=== PATIENT | female | born 1950 | race Caucasian/White ===

== ENCOUNTER 2022-11-06 13:01 | Emergency (ER) | payer OTHER ==
--- OUTSIDE RECORDS SUMMARY | 2022-11-06 13:07 | XMS REPORT | Continuity of Care Document ---
:1950 Author Organization [facility] t Address [address] [place] [address] Care Team Providers Name Role Phone Ariela Ceron Attending Clinician Pako Attending Clinician Unavailable Raghu Kimble Attending Clinician Unavailable Pako Admitting Clinician Unavailable Raghu Kimble Admitting Clinician Unavailable Payers Payer Name Policy Type Policy Number Effective Date Expiration Date S coretta AETLEN (MEDICARE [id number] 2022 REPLACEMENT PPO) 00:00:00 Problems Condition Condition Condition Status Onset Resolution Last Treating Co mments Source Name Details Category Date Date Treatment Clinician Date Acquired Acquired Problem Active Azale a trigger Trigger 4-20 Orthope finger of Finger of 00:00: dic right Right 00 Sports middle Middle Medicin finger Finger e STRESS STRESS Diagnosis Active 2019-05-23 Me moria INCONTINEN INCONTINEN 05-18 13:17:00 l CE CE Active 00:00: Apolinar n 05/18/[address] [place] [address] Current Current Problem Active Maria Dolores tear of Tear of 4-30 Orthope medial Medial 00:00: dic cartilage Cartilage 00 Spor ts AND/OR AND/OR Medicin meniscus Meniscus e of knee of Knee Chronic Chronic Problem Resolve 2021-01-01 M emoria urinary urinary d 21:30:13 l tract tract Ajit infection infection (disorder) (disorder) Resolved Problem 01/01/2021 [facility] Hyperchole Hyperchol Problem Resolve 2021-01-01 Memoria sterolemia esterolemi d 21:30:13 l (disorder) a Apolinar n (disorder) Resolved Problem 01/01/2021 [facility] Blood in Blood in Problem Active 2022-10-21 Memoria urine urine 22:06:17 l (finding) (finding) Herm joaquin Active Problem 10/21/2022 [facility] Constipati Problem Active 2022-10-21 M emoria on Constipati 22:06:17 l (disorder) on Apolinar n (disorder) Active Problem 10/21/2022 [facility] Time Share Mixed Mixed Problem Active 2022-10-21 Memor ia incontinen incontinen 22:06:17 l ce ce Ajit (finding) (finding) Active Problem 10/21/2022 [facility] Morbid Morbid Problem Active 2022-10-21 [facility] obesity obesity 22:06:17 l (disorder) (disorder) He rmann Active Problem 10/21/2022 [facility] Recurrent Recurrent Problem Active 2022-10-21 Memoria urinary urinary 22:06:17 l tract tract [place] infection infection (disorder) (disorder) Active Problem 10/21/2022 [facility] Vaginal Vaginal Problem Active 2022-10-21 Me moria dryness dryness 22:06:17 l (disorder) (disorder) He rmann Active Problem 10/21/2022 [facility] Time Share Allergies, Adverse Reactions, Alerts Allergy Allergy Status Severity Reaction(s) Onset Inactive Treating Comm ents Source Name Type Date Date Clinician prometha DA Active [facility] zine HCl 08-28 00:00: [facility] ibuprofe DA Active [facility] n 08-28 00:00: [facility]ope 00 [facility] prometha DA Active [facility] zine HCl - 00:00: Orthope 00 [facility] ibuprofe DA Active [facility] n 09-12 00:00: [facility]ope 00 [facility] Phenerga Allergy Active Maria Dolores n to 09-02 Orthope substan 00:00: dic e 00 Sports Medicin e Motrin Motrin Active Abby Fong Phenerga Phenerga Active Abraham huang n n l Ajit Social History Smoking Status Start Date Stop Date Source Tobacco smoking status [facility] Medications Ordered Filled Start Stop Current Ordering Indication Dosage Frequency Signature Comments Components Source Medication Medication Date Date Medication? Clinician (SIG) Name Name cephalexin 2021-05 Yes 20 ea, Memor ia 500 mg oral 2-12 TAKE 1 l capsule 17:42: CAPSULE BY Herm joaquin 00 MOUTH TWICE A DAY FOR 10 DAYS, 0 Refill(s) betamethaso 2021-05 Yes 30 gm, [place] [facility] ne-clotrima 2-12 TOPICAL l zole 17:42: APPLY TO [place] topical 00 AFFECTED 0.05%-1% AREA TWICE cream DAILY NEEDED, 0 Refill(s) erythromyci 2021-05 Yes 3 gm, Memor ia n 2-12 APPLY AT l ophthalmic 17:42: BEDTIME Herm joaquin 0.5% 00 FOR 1 WEEK ointment IN BOTH EYES, 0 Refill(s) cephalexin 2021-05 Yes 20 ea, Memor ia 500 mg oral 2-12 TAKE 1 l capsule 17:42: CAPSULE BY Herm joaquin 00 MOUTH TWICE A DAY FOR 10 DAYS, 0 Refill(s) betamethaso 2021-05 Yes 30 gm, [place] [facility] ne-clotrima 2-12 TOPICAL l zole 17:42: APPLY TO Ajit topical 00 AFFECTED 0.05%-1% AREA TWICE cream DAILY NEEDED, 0 Refill(s) erythromyci 2021-05 Yes 3 gm, Memor ia n 2-12 APPLY AT l ophthalmic 17:42: BEDTIME Herm joaquin 0.5% 00 FOR 1 WEEK ointment IN BOTH EYES, 0 Refill(s) cephalexin 2021-05 Yes 20 ea, Memor ia 500 mg oral 2-12 TAKE 1 l capsule 17:42: CAPSULE BY Herm joaquin 00 MOUTH TWICE A DAY FOR 10 DAYS, 0 Refill(s) betamethaso 2021-05 Yes 30 gm, [place] [facility] ne-clotrima 2-12 TOPICAL l zole 17:42: APPLY TO [place] topical 00 AFFECTED 0.05%-1% AREA TWICE cream DAILY NEEDED, 0 Refill(s) erythromyci 2021-05 Yes 3 gm, Memor ia n 2-12 APPLY AT l ophthalmic 17:42: BEDTIME Herm joaquin 0.5% 00 FOR 1 WEEK ointment IN BOTH EYES, 0 Refill(s) cephalexin 2021-05 Yes 20 ea, Memor ia 500 mg oral 2-12 TAKE 1 l capsule 17:42: CAPSULE BY Herm joaquin 00 MOUTH TWICE A DAY FOR 10 DAYS, 0 Refill(s) betamethaso 2021-05 Yes 30 gm, [place] ne-clotrima 2-12 TOPICAL l zole 17:42: APPLY TO Ajit topical 00 AFFECTED 0.05%-1% AREA TWICE cream DAILY NEEDED, 0 Refill(s) erythromyci 2021-05 Yes 3 gm, Memor ia n 2-12 APPLY AT l ophthalmic 17:42: BEDTIME Herm joaquin 0.5% 00 FOR 1 WEEK ointment IN BOTH EYES, 0 Refill(s) cephalexin 2021-05 Yes 20 ea, Memor ia 500 mg oral 2-12 TAKE 1 l capsule 17:42: CAPSULE BY Herm joaquin 00 MOUTH TWICE A DAY FOR 10 DAYS, 0 Refill(s) betamethaso 2021-05 Yes 30 gm, [place] [facility] ne-clotrima 2-12 TOPICAL l zole 17:42: APPLY TO [place] topical 00 AFFECTED 0.05%-1% AREA TWICE cream DAILY NEEDED, 0 Refill(s) erythromyci 2021-05 Yes 3 gm, Memor ia n 2-12 APPLY AT l ophthalmic 17:42: BEDTIME Herm joaquin 0.5% 00 FOR 1 WEEK ointment IN BOTH EYES, 0 Refill(s) cephalexin 2021-05 Yes 20 ea, Memor ia 500 mg oral 2-12 TAKE 1 l capsule 17:42: CAPSULE BY Herm joaquin 00 MOUTH TWICE A DAY FOR 10 DAYS, 0 Refill(s) betamethaso 2021-05 Yes 30 gm, [place] ne-clotrima 2-12 TOPICAL l zole 17:42: APPLY TO Ajit topical 00 AFFECTED 0.05%-1% AREA TWICE cream DAILY NEEDED, 0 Refill(s) erythromyci 2021-05 Yes 3 gm, Memor ia n 2-12 APPLY AT l ophthalmic 17:42: BEDTIME Herm joaquin 0.5% 00 FOR 1 WEEK ointment IN BOTH EYES, 0 Refill(s) cephalexin 2021-05 Yes 20 ea, Memor ia 500 mg oral 2-12 TAKE 1 l capsule 17:42: CAPSULE BY Herm joaquin 00 MOUTH TWICE A DAY FOR 10 DAYS, 0 Refill(s) betamethaso 2021-05 Yes 30 gm, [place] ne-clotrima 2-12 TOPICAL l zole 17:42: APPLY TO [place] topical 00 AFFECTED 0.05%-1% AREA TWICE cream DAILY NEEDED, 0 Refill(s) erythromyci 2021-05 Yes 3 gm, Memor ia n 2-12 APPLY AT l ophthalmic 17:42: BEDTIME Herm joaquin 0.5% 00 FOR 1 WEEK ointment IN BOTH EYES, 0 Refill(s) Estrace 2021-05 Yes See Memoria Vaginal 1-09 Instructio l Cream 0.1 19:21: ns, apply Her hernandez mg/g 00 pea size amount to urethra and vagina nightly for 2 weeks and then 3xweek. 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 . Estrace 2021-05 Yes See Memoria Vaginal 1-09 Instructio l Cream 0.1 19:21: ns, apply Her hernandez mg/g 00 pea size amount to urethra and vagina nightly for 2 weeks and then 3xweek. 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 . Estrace 2021-05 Yes See Memoria Vaginal 1-09 Instructio l Cream 0.1 19:21: ns, apply Her hernandez mg/g 00 pea size amount to urethra and vagina nightly for 2 weeks and then 3xweek. 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 . Estrace 2021-05 Yes See Memoria Vaginal 1- Instructio l Cream 0.1 19:21: ns, apply Her hernandez mg/g 00 pea size amount to urethra and vagina nightly for 2 weeks and then 3xweek. May dispose of applicator ., # 43 gm, 3 Refill(s), [facility]acy: [id number], 154.94, cm, 03/18/22 12:23: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, Height, 83.75, kg, 03/18/22 12:23:00.. . Estrace 2021-05 Yes See Memoria Vaginal - Instructio l Cream 0.1 19:21: ns, apply Her hernandez mg/g 00 pea size amount to urethra and vagina nightly for 2 weeks and then 3xweek. May dispose of applicator ., # 43 gm, 3 Refill(s), Pharmacy: [id number], 154.94, cm, 03/18/22 12:23: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, Height, 83.75, kg, 03/18/22 12:23:00.. . Estrace 2021-05 Yes See Memoria Vaginal - Instructio l Cream 0.1 19:21: ns, apply Her hernandez mg/g 00 pea size amount to urethra and vagina nightly for 2 weeks and then 3xweek. May dispose of applicator ., # 43 gm, 3 Refill(s), Pharmacy: [id number], 154.94, cm, 03/18/22 12:23: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, Height, 83.75, kg, 03/18/22 12:23:00.. . Estrace 2021-05 Yes See Memoria Vaginal 1-09 Instructio l Cream 0.1 19:21: ns, apply Her hernandez mg/g 00 pea size amount to urethra and vagina nightly for 2 weeks and then 3xweek. May dispose of applicator ., # 43 gm, 3 Refill(s), Pharmacy: [id number], 154.94, cm, 03/18/22 12:23: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, Height, 83.75, kg, 03/18/22 12:23:00.. . Premarin 2020-0 Yes 1 appl, Memori a Vaginal 8-26 VAG, l 0.625 mg/g 13:52: Bedtime, Her hernandez cream with 00 apply pea applicator sized amount to urethral 3 times a week., # 42 gm, 3 Refill(s), Pharmacy: [id number], 154.94, cm, 09/19/20 13:13:00 CDT, Height, 97.273, kg, 09/19/20 13:13:00 CDT, Weight Premarin 2020-0 Yes 1 appl, Memori a Vaginal 8-26 VAG, l 0.625 mg/g 13:52: Bedtime, Her hernandez cream with 00 apply pea applicator sized amount to urethral 3 times a week., # 42 gm, 3 Refill(s), Pharmacy: [email or web address] #[id number], 154.94, cm, 09/19/20 13:13:00 CDT, Height, 97.273, kg, 09/19/20 13:13:00 CDT, Weight Premarin 0 Yes 1 appl, Memori a Vaginal 8-26 VAG, l 0.625 mg/g 13:52: Bedtime, Her hernandez cream with 00 apply pea applicator sized amount to urethral 3 times a week., # 42 gm, 3 Refill(s), Pharmacy: [id number], 154.94, cm, 09/19/20 13:13:00 CDT, Height, 97.273, kg, 09/19/20 13:13:00 CDT, Weight Premarin 0 Yes 1 appl, Memori a Vaginal 8-26 VAG, l 0.625 mg/g 13:52: Bedtime, Her hernandez cream with 00 apply pea applicator sized amount to urethral 3 times a week., # 42 gm, 3 Refill(s), Pharmacy: [id number], 154.94, cm, 09/19/20 13:13:00 CDT, Height, 97.273, kg, 09/19/20 13:13:00 CDT, Weight Premarin 2020-0 Yes 1 appl, Memori a Vaginal 8-26 VAG, l 0.625 mg/g 13:52: Bedtime, Her hernandez cream with 00 apply pea applicator sized amount to urethral 3 times a week., # 42 gm, 3 Refill(s), Pharmacy: [id number], 154.94, cm, 09/19/20 13:13:00 CDT, Height, 97.273, kg, 09/19/20 13:13:00 CDT, Weight Premarin 1-0 Yes 1 appl, Memori a Vaginal 8-26 VAG, l 0.625 mg/g 13:52: Bedtime, Her hernandez cream with 00 apply pea applicator sized amount to urethral 3 times a week., # 42 gm, 3 Refill(s), Pharmacy: [id number], 154.94, cm, 09/19/20 13:13:00 CDT, Height, 97.273, kg, 09/19/20 13:13:00 CDT, Weight Premarin 1-0 Yes 1 appl, Memori a Vaginal 8-26 VAG, l 0.625 mg/g 13:52: Bedtime, Her hernandez cream with 00 apply pea applicator sized amount to urethral 3 times a week., # 42 gm, 3 Refill(s), Pharmacy: [id number], 154.94, cm, 09/19/20 13:13:00 CDT, Height, 97.273, kg, 09/19/20 13:13:00 CDT, Weight Vantin 200 2021-0 Yes 200 mg = 1 M emoria mg oral 5-13 tab, PO, l tablet 19:11: Q12H, X 14 Rayne nn 00 day, # 28 tab, 0 Refill(s), Pharmacy: [id number], 154.94, cm, 09/19/20 13:13:00 CDT, Height, 97.273, kg, 09/19/20 13:13:00 CDT, Weight Vantin 200 2021-0 Yes 200 mg = 1 M emoria mg oral 5-13 tab, PO, l tablet 19:11: Q12H, X 14 Rayne nn 00 day, # 28 tab, 0 Refill(s), Pharmacy: [id number], 154.94, cm, 09/19/20 13:13:00 CDT, Height, 97.273, kg, 09/19/20 13:13:00 CDT, Weight Vantin 200 2021-0 Yes 200 mg = 1 M emoria mg oral 5-13 tab, PO, l tablet 19:11: Q12H, X 14 Rayne nn 00 day, # 28 tab, 0 Refill(s), Pharmacy: [id number], 154.94, cm, 09/19/20 13:13:00 CDT, Height, 97.273, kg, 09/19/20 13:13:00 CDT, Weight Vantin 200 2021-0 Yes 200 mg = 1 M emoria mg oral 5-13 tab, PO, l tablet 19:11: Q12H, X 14 Rayne nn day, # 28 tab, 0 Refill(s), Pharmacy: [id number], 154.94, cm, 09/19/20 13:13:00 CDT, Height, 97.273, kg, 09/19/20 13:13:00 CDT, Weight Vantin 200 2021-0 Yes 200 mg = 1 M emoria mg oral 5-13 tab, PO, l tablet 19:11: Q12H, X 14 Rayne nn 00 day, # 28 tab, 0 Refill(s), Pharmacy: [id number], 154.94, cm, 09/19/20 13:13:00 CDT, Height, 97.273, kg, 09/19/20 13:13:00 CDT, Weight Vantin 200 2021-0 Yes 200 mg = 1 M emoria mg oral 5-13 tab, PO, l tablet 19:11: Q12H, X 14 Rayne nn 00 day, # 28 tab, 0 Refill(s), Pharmacy: [id number], 154.94, cm, 09/19/20 13:13:00 CDT, Height, 97.273, kg, 09/19/20 13:13:00 CDT, Weight Vantin 200 2021-0 Yes 200 mg = 1 M emoria mg oral 5-13 tab, PO, l tablet 19:11: Q12H, X 14 Rayne nn 00 day, # 28 tab, 0 Refill(s), Pharmacy: [id number], 154.94, cm, 09/19/20 13:13:00 CDT, Height, 97.273, kg, 09/19/20 13:13:00 CDT, Weight VESIcare 5 2020-0 Yes 5 mg = 1 Mem oria mg oral 1-11 tab, PO, l tablet 15:46: Daily, # [place] 00 90 tab, 3 Refill(s), Pharmacy: [id number], 154.94, cm, 04/10/20 8:55: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, Height, 97.273, kg, 04/10/20 8:55: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, Weight VESIcare 5 2020-0 Yes 5 mg = 1 Mem oria mg oral 1-11 tab, PO, l tablet 15:46: Daily, # Ajit 00 90 tab, 3 Refill(s), Pharmacy: [id number], 154.94, cm, 04/10/20 8:55: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, Height, 97.273, kg, 04/10/20 8:55: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, Weight VESIcare 5 2020-0 Yes 5 mg = 1 Mem oria mg oral 1-11 tab, PO, l tablet 15:46: Daily, # Ajit 00 90 tab, 3 Refill(s), Pharmacy: [id number], 154.94, cm, 04/10/20 8:55: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, Height, 97.273, kg, 04/10/20 8:55: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, Weight VESIcare 5 2020-0 Yes 5 mg = 1 Mem oria mg oral 1-11 tab, PO, l tablet 15:46: Daily, # [place] 00 90 tab, 3 Refill(s), Pharmacy: [id number], 154.94, cm, 04/10/20 8:55: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, Height, 97.273, kg, 04/10/20 8:55: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, Weight VESIcare 5 2020-0 Yes 5 mg = 1 Mem oria mg oral 1-11 tab, PO, l tablet 15:46: Daily, # Ajit 00 90 tab, 3 Refill(s), Pharmacy: [id number], 154.94, cm, 04/10/20 8:55: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, Height, 97.273, kg, 04/10/20 8:55: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, Weight VESIcare 5 2020-0 Yes 5 mg = 1 Mem oria mg oral 1-11 tab, PO, l tablet 15:46: Daily, # Ajit 00 90 tab, 3 Refill(s), Pharmacy: [facility] #[id number], 154.94, cm, 04/10/20 8:55: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, Height, 97.273, kg, 04/10/20 8:55: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, Weight VESIcare 5 2020-0 Yes 5 mg = 1 Mem oria mg oral 1-11 tab, PO, l tablet 15:46: Daily, # [place] 00 90 tab, 3 Refill(s), Pharmacy: [id number], 154.94, cm, 04/10/20 8:55: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, Height, 97.273, kg, 04/10/20 8:55: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, Weight Ciprofloxac 2019-05 Yes 500 mg = 1 Memoria in 500 MG 2-02 tab, PO, l Oral Tablet 15:38: Q12H, for H ermann [Cipro] 00 UTI, X 3 day, # 6 tab, 0 Refill(s), Pharmacy: [id number], 154.94, cm, 04/10/20 8:55: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, Height, 97.273, kg, 04/10/20 8:55: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, Weight Ciprofloxac 2019-05 Yes 500 mg = 1 Memoria in 500 MG 2-02 tab, PO, l Oral Tablet 15:38: Q12H, for H ermann [Cipro] 00 UTI, X 3 day, # 6 tab, 0 Refill(s), Pharmacy: [id number], 154.94, cm, 04/10/20 8:55: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, Height, 97.273, kg, 04/10/20 8:55: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, Weight Ciprofloxac 2019-05 Yes 500 mg = 1 Memoria in 500 MG 2-02 tab, PO, l Oral Tablet 15:38: Q12H, for H ermann [Cipro] 00 UTI, X 3 day, # 6 tab, 0 Refill(s), Pharmacy: [id number], 154.94, cm, 04/10/20 8:55: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, Height, 97.273, kg, 04/10/20 8:55: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, Weight Ciprofloxac 2019-05 Yes 500 mg = 1 Memoria in 500 MG 2-02 tab, PO, l Oral Tablet 15:38: Q12H, for H ermann [Cipro] 00 UTI, X 3 day, # 6 tab, 0 Refill(s), Pharmacy: [id number], 154.94, cm, 04/10/20 8:55: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, Height, 97.273, kg, 04/10/20 8:55: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, Weight Ciprofloxac 2019-05 Yes 500 mg = 1 Memoria in 500 MG 2-02 tab, PO, l Oral Tablet 15:38: Q12H, for H ermann [Cipro] 00 UTI, X 3 day, # 6 tab, 0 Refill(s), Pharmacy: [id number], 154.94, cm, 04/10/20 8:55: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, Height, 97.273, kg, 04/10/20 8:55: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, Weight Ciprofloxac 2019-05 Yes 500 mg = 1 Memoria in 500 MG 2-02 tab, PO, l Oral Tablet 15:38: Q12H, for H ermann [Cipro] 00 UTI, X 3 day, # 6 tab, 0 Refill(s), Pharmacy: [id number], 154.94, cm, 04/10/20 8:55: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, Height, 97.273, kg, 04/10/20 8:55: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, Weight Ciprofloxac 2019-05 Yes 500 mg = 1 Memoria in 500 MG 2-02 tab, PO, l Oral Tablet 15:38: Q12H, for H ermann [Cipro] 00 UTI, X 3 day, # 6 tab, 0 Refill(s), Pharmacy: [id number], 154.94, cm, 04/10/20 8:55: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, Height, 97.273, kg, 04/10/20 8:55: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, Weight solifenacin 2019-05 Yes 5 mg = 1 Me moria succinate 5 2-02 tab, PO, l MG Oral 15:37: Daily, # Apolinar n Tablet 00 90 tab, 3 [VESICARE] Refill(s), Pharmacy: [id number], 154.94, cm, 04/10/20 8:55: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, Height, 97.273, kg, 04/10/20 8:55: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, Weight Estrogens, 2019-05 Yes 1 appl, [place] er[place] Conjugated 2-02 VAG, l (RESIDENTIAL) 0.625 15:37: Bedtime, He rmann MG/ML 00 apply pea Vaginal sized Cream amount to [Premarin] urethral 3 times a week., # 42 gm, 3 Refill(s), Pharmacy: [id number], 154.94, cm, 04/10/20 8:55: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, Height, 97.273, kg, 04/10/20 8:55: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, Weight solifenacin 2019-05 Yes 5 mg = 1 Me moria succinate 5 2-02 tab, PO, l MG Oral 15:37: Daily, # Apolinar n Tablet 00 90 tab, 3 [VESICARE] Refill(s), Pharmacy: [id number], 154.94, cm, 04/10/20 8:55: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, Height, 97.273, kg, 04/10/20 8:55: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, Weight Estrogens, 2019-05 Yes 1 appl, [place] eris Conjugated 2-02 VAG, l (RESIDENTIAL) 0.625 15:37: Bedtime, He rmann MG/ML 00 apply pea Vaginal sized Cream amount to [Premarin] urethral 3 times a week., # 42 gm, 3 Refill(s), Pharmacy: [id number], 154.94, cm, 04/10/20 8:55: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, Height, 97.273, kg, 04/10/20 8:55: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, Weight solifenacin 2019-05 Yes 5 mg = 1 Me moria succinate 5 2-02 tab, PO, l MG Oral 15:37: Daily, # Apolinar n Tablet 00 90 tab, 3 [VESICARE] Refill(s), Pharmacy: [id number], 154.94, cm, 04/10/20 8:55: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, Height, 97.273, kg, 04/10/20 8:55: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, Weight Estrogens, 2019-05 Yes 1 appl, [place] er[place] Conjugated 2-02 VAG, l (RESIDENTIAL) 0.625 15:37: Bedtime, He rmann MG/ML 00 apply pea Vaginal sized Cream amount to [Premarin] urethral 3 times a week., # 42 gm, 3 Refill(s), Pharmacy: [id number], 154.94, cm, 04/10/20 8:55: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, Height, 97.273, kg, 04/10/20 8:55: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, Weight solifenacin 2019-05 Yes 5 mg = 1 Me moria succinate 5 2-02 tab, PO, l MG Oral 15:37: Daily, # Apolinar n Tablet 00 90 tab, 3 [VESICARE] Refill(s), Pharmacy: [id number], 154.94, cm, 04/10/20 8:55: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, Height, 97.273, kg, 04/10/20 8:55: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, Weight Estrogens, 2019-05 Yes 1 appl, [place] eris Conjugated 2-02 VAG, l (RESIDENTIAL) 0.625 15:37: Bedtime, He rmann MG/ML 00 apply pea Vaginal sized Cream amount to [Premarin] urethral 3 times a week., # 42 gm, 3 Refill(s), Pharmacy: [id number], 154.94, cm, 04/10/20 8:55: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, Height, 97.273, kg, 04/10/20 8:55: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, Weight solifenacin 2019-05 Yes 5 mg = 1 Me moria succinate 5 2-02 tab, PO, l MG Oral 15:37: Daily, # Apolinar n Tablet 00 90 tab, 3 [VESICARE] Refill(s), Pharmacy: [id number], 154.94, cm, 04/10/20 8:55: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, Height, 97.273, kg, 04/10/20 8:55: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, Weight Estrogens, 2019-05 Yes 1 appl, [place] eris Conjugated 2-02 VAG, l (RESIDENTIAL) 0.625 15:37: Bedtime, He rmann MG/ML 00 apply pea Vaginal sized Cream amount to [Premarin] urethral 3 times a week., # 42 gm, 3 Refill(s), Pharmacy: [id number], 154.94, cm, 04/10/20 8:55: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, Height, 97.273, kg, 04/10/20 8:55: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, Weight solifenacin 2019-05 Yes 5 mg = 1 Me moria succinate 5 2-02 tab, PO, l MG Oral 15:37: Daily, # Apolinar n Tablet 00 90 tab, 3 [VESICARE] Refill(s), Pharmacy: [id number], 154.94, cm, 04/10/20 8:55: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, Height, 97.273, kg, 04/10/20 8:55: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, Weight Estrogens, 2019-05 Yes 1 appl, [place] eris Conjugated 2-02 VAG, l (RESIDENTIAL) 0.625 15:37: Bedtime, He rmann MG/ML 00 apply pea Vaginal sized Cream amount to [Premarin] urethral 3 times a week., # 42 gm, 3 Refill(s), Pharmacy: [id number], 154.94, cm, 04/10/20 8:55: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, Height, 97.273, kg, 04/10/20 8:55: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, Weight solifenacin 2019-05 Yes 5 mg = 1 Me moria succinate 5 2-02 tab, PO, l MG Oral 15:37: Daily, # Apolinar n Tablet 00 90 tab, 3 [VESICARE] Refill(s), Pharmacy: [id number], 154.94, cm, 04/10/20 8:55: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, Height, 97.273, kg, 04/10/20 8:55: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, Weight Estrogens, 2019-05 Yes 1 appl, [place] Conjugated 2-02 VAG, l (RESIDENTIAL) 0.625 15:37: Bedtime, He rmann MG/ML 00 apply pea Vaginal sized Cream amount to [Premarin] urethral 3 times a week., # 42 gm, 3 Refill(s), Pharmacy: [id number], 154.94, cm, 04/10/20 8:55: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, Height, 97.273, kg, 04/10/20 8:55: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, Weight solifenacin 2020-1 Yes 5 mg = 1 Me moria succinate 5 0-14 tab, PO, l MG Oral 14:21: Daily, # Apolinar n Tablet 00 90 tab, 0 [VESICARE] Refill(s), Pharmacy: [facility] #[id number], 157.48, cm, 02/21/20 8:43:00 CDT, Height, 97.273, kg, 02/21/20 8:43:00 CDT, Weight solifenacin 2020- Yes 5 mg = 1 Me moria succinate 5 0-14 tab, PO, l MG Oral 14:21: Daily, # Apolinar n Tablet 00 90 tab, 0 [VESICARE] Refill(s), Pharmacy: [facility] #[id number], 157.48, cm, 02/21/20 8:43:00 CDT, Height, 97.273, kg, 02/21/20 8:43:00 CDT, Weight solifenacin 2020- Yes 5 mg = 1 Me moria succinate 5 0-14 tab, PO, l MG Oral 14:21: Daily, # Apolinar n Tablet 00 90 tab, 0 [VESICARE] Refill(s), Pharmacy: [facility] #[id number], 157.48, cm, 02/21/20 8:43:00 CDT, Height, 97.273, kg, 02/21/20 8:43:00 CDT, Weight solifenacin 2020- Yes 5 mg = 1 Me moria succinate 5 0-14 tab, PO, l MG Oral 14:21: Daily, # Apolinar n Tablet 00 90 tab, 0 [VESICARE] Refill(s), Pharmacy: [facility] #[id number], 157.48, cm, 02/21/20 8:43:00 CDT, Height, 97.273, kg, 02/21/20 8:43:00 CDT, Weight solifenacin 2020-1 Yes 5 mg = 1 Me moria succinate 5 0-14 tab, PO, l MG Oral 14:21: Daily, # Apolinar n Tablet 00 90 tab, 0 [VESICARE] Refill(s), Pharmacy: [facility] #[id number], 157.48, cm, 02/21/20 8:43:00 CDT, Height, 97.273, kg, 02/21/20 8:43:00 CDT, Weight solifenacin 2020-1 Yes 5 mg = 1 Me moria succinate 5 0-14 tab, PO, l MG Oral 14:21: Daily, # Apolinar n Tablet 00 90 tab, 0 [VESICARE] Refill(s), Pharmacy: [facility] #[id number], 157.48, cm, 02/21/20 8:43:00 CDT, Height, 97.273, kg, 02/21/20 8:43:00 CDT, Weight solifenacin 2019-1 Yes 5 mg = 1 Me moria succinate 5 0-14 tab, PO, l MG Oral 14:21: Daily, # Apolinar n Tablet 00 90 tab, 0 [VESICARE] Refill(s), Pharmacy: [facility] #[id number], 157.48, cm, 02/21/20 8:43:00 CDT, Height, 97.273, kg, 02/21/20 8:43:00 CDT, Weight VESIcare 10 2020-0 Yes 10 mg = 1 M emoria mg oral 7-20 tab, PO, l tablet 19:22: Daily, # [place] 00 90 tab, 3 Refill(s), Pharmacy: [facility] #[id number], change to 90 day RX per your request, 157.48, cm, 11/22/19 9:28:00 CDT, Height, 97.727, kg, 11/22/19 9:28:00 CDT, Weight VESIcare 10 2020-0 Yes 10 mg = 1 M emoria mg oral 7-20 tab, PO, l tablet 19:22: Daily, # Ajit 00 90 tab, 3 Refill(s), Pharmacy: [facility] #[id number], change to 90 day RX per your request, 157.48, cm, 11/22/19 9:28:00 CDT, Height, 97.727, kg, 11/22/19 9:28:00 CDT, Weight VESIcare 10 2020-0 Yes 10 mg = 1 M emoria mg oral 7-20 tab, PO, l tablet 19:22: Daily, # Ajit 00 90 tab, 3 Refill(s), Pharmacy: [facility] #[id number], change to 90 day RX per your request, 157.48, cm, 11/22/19 9:28:00 CDT, Height, 97.727, kg, 11/22/19 9:28:00 CDT, Weight VESIcare 10 2020-0 Yes 10 mg = 1 M emoria mg oral 7-20 tab, PO, l tablet 19:22: Daily, # [place] 00 90 tab, 3 Refill(s), Pharmacy: [facility] #[id number], change to 90 day RX per your request, 157.48, cm, 11/22/19 9:28:00 CDT, Height, 97.727, kg, 11/22/19 9:28:00 CDT, Weight VESIcare 10 2020-0 Yes 10 mg = 1 M emoria mg oral 7-20 tab, PO, l tablet 19:22: Daily, # [place] 00 90 tab, 3 Refill(s), Pharmacy: [facility] #[id number], change to 90 day RX per your request, 157.48, cm, 11/22/19 9:28:00 CDT, Height, 97.727, kg, 11/22/19 9:28:00 CDT, Weight VESIcare 10 2020-0 Yes 10 mg = 1 M emoria mg oral 7-20 tab, PO, l tablet 19:22: Daily, # Ajit 00 90 tab, 3 Refill(s), Pharmacy: [facility] #[id number], change to 90 day RX per your request, 157.48, cm, 11/22/19 9:28:00 CDT, Height, 97.727, kg, 11/22/19 9:28:00 CDT, Weight VESIcare 10 2020-0 Yes 10 mg = 1 M emoria mg oral 7-20 tab, PO, l tablet 19:22: Daily, # Ajit 00 90 tab, 3 Refill(s), Pharmacy: [facility] #[id number], change to 90 day RX per your request, 157.48, cm, 11/22/19 9:28:00 CDT, Height, 97.727, kg, 11/22/19 9:28:00 CDT, Weight Estrogens, 2019-0 Yes 1 appl, [place] Conjugated 7-15 VAG, l (RESIDENTIAL) 0.625 16:58: Bedtime, He rmann MG/ML 00 apply pea Vaginal sized Cream amount to [Premarin] urethral 3 times a week., # 42 gm, 3 Refill(s), Pharmacy: [email or web address] #[id number], 157.48, cm, 11/22/19 9:28:00 CDT, Height, 97.727, kg, 11/22/19 9:28:00 CDT, Weight Estrogens, 2019-0 Yes 1 appl, [place] Conjugated 7-15 VAG, l (RESIDENTIAL) 0.625 16:58: Bedtime, He rmann MG/ML 00 apply pea Vaginal sized Cream amount to [Premarin] urethral 3 times a week., # 42 gm, 3 Refill(s), Pharmacy: [facility] #[id number], 157.48, cm, 11/22/19 9:28:00 CDT, Height, 97.727, kg, 11/22/19 9:28:00 CDT, Weight Estrogens, 2019-0 Yes 1 appl, [place] Conjugated 7-15 VAG, l (RESIDENTIAL) 0.625 16:58: Bedtime, He rmann MG/ML 00 apply pea Vaginal sized Cream amount to [Premarin] urethral 3 times a week., # 42 gm, 3 Refill(s), Pharmacy: [email or web address] #[id number], 157.48, cm, 11/22/19 9:28:00 CDT, Height, 97.727, kg, 11/22/19 9:28:00 CDT, Weight Estrogens, 2019-0 Yes 1 appl, [place] Conjugated 7-15 VAG, l (RESIDENTIAL) 0.625 16:58: Bedtime, He rmann MG/ML 00 apply pea Vaginal sized Cream amount to [Premarin] urethral 3 times a week., # 42 gm, 3 Refill(s), Pharmacy: [email or web address] #[id number], 157.48, cm, 11/22/19 9:28:00 CDT, Height, 97.727, kg, 11/22/19 9:28:00 CDT, Weight Estrogens, 2019-0 Yes 1 appl, [place] Conjugated 7-15 VAG, l (RESIDENTIAL) 0.625 16:58: Bedtime, He rmann MG/ML 00 apply pea Vaginal sized Cream amount to [Premarin] urethral 3 times a week., # 42 gm, 3 Refill(s), Pharmacy: [facility] #[id number], 157.48, cm, 11/22/19 9:28:00 CDT, Height, 97.727, kg, 11/22/19 9:28:00 CDT, Weight Estrogens, 2019-0 Yes 1 appl, [place] Conjugated 7-15 VAG, l (RESIDENTIAL) 0.625 16:58: Bedtime, He rmann MG/ML 00 apply pea Vaginal sized Cream amount to [Premarin] urethral 3 times a week., # 42 gm, 3 Refill(s), Pharmacy: [facility] #[id number], 157.48, cm, 11/22/19 9:28:00 CDT, Height, 97.727, kg, 11/22/19 9:28:00 CDT, Weight Estrogens, 2019-0 Yes 1 appl, [place] Conjugated 7-15 VAG, l (RESIDENTIAL) 0.625 16:58: Bedtime, He rmann MG/ML 00 apply pea Vaginal sized Cream amount to [Premarin] urethral 3 times a week., # 42 gm, 3 Refill(s), Pharmacy: [facility] #[id number], 157.48, cm, 11/22/19 9:28:00 CDT, Height, 97.727, kg, 11/22/19 9:28:00 CDT, Weight solifenacin 2019-0 Yes 10 mg = 1 M emoria succinate 7-15 tab, PO, l 10 MG Oral 15:09: Daily, # Her hernandez Tablet 00 30 tab, 3 [VESICARE] Refill(s), Pharmacy: [facility] #[id number], 157.48, cm, 11/22/19 9:28:00 CDT, Height, 97.727, kg, 11/22/19 9:28:00 CDT, Weight solifenacin 2019-0 Yes 10 mg = 1 M emoria succinate 7-15 tab, PO, l 10 MG Oral 15:09: Daily, # hernandez Tablet 00 30 tab, 3 [VESICARE] Refill(s), Pharmacy: [facility] #[id number], 157.48, cm, 11/22/19 9:28:00 CDT, Height, 97.727, kg, 11/22/19 9:28:00 CDT, Weight solifenacin 2020-0 Yes 10 mg = 1 M emoria succinate 7-15 tab, PO, l 10 MG Oral 15:09: Daily, # Her hernandez Tablet 00 30 tab, 3 [VESICARE] Refill(s), Pharmacy: [facility] #[id number], 157.48, cm, 11/22/19 9:28:00 CDT, Height, 97.727, kg, 11/22/19 9:28:00 CDT, Weight solifenacin 2020-0 Yes 10 mg = 1 M emoria succinate 7-15 tab, PO, l 10 MG Oral 15:09: Daily, # hernandez Tablet 00 30 tab, 3 [VESICARE] Refill(s), Pharmacy: [facility] #[id number], 157.48, cm, 11/22/19 9:28:00 CDT, Height, 97.727, kg, 11/22/19 9:28:00 CDT, Weight solifenacin 2020-0 Yes 10 mg = 1 M emoria succinate 7-15 tab, PO, l 10 MG Oral 15:09: Daily, # hernandez Tablet 00 30 tab, 3 [VESICARE] Refill(s), Pharmacy: [facility] #[id number], 157.48, cm, 11/22/19 9:28:00 CDT, Height, 97.727, kg, 11/22/19 9:28:00 CDT, Weight solifenacin 2020-0 Yes 10 mg = 1 M emoria succinate 7-15 tab, PO, l 10 MG Oral 15:09: Daily, # Her hernandez Tablet 00 30 tab, 3 [VESICARE] Refill(s), Pharmacy: [facility] #[id number], 157.48, cm, 11/22/19 9:28:00 CDT, Height, 97.727, kg, 11/22/19 9:28:00 CDT, Weight solifenacin 2020-0 Yes 10 mg = 1 M emoria succinate 7-15 tab, PO, l 10 MG Oral 15:09: Daily, # Her hernandez Tablet 00 30 tab, 3 [VESICARE] Refill(s), Pharmacy: [facility] #[id number], 157.48, cm, 11/22/19 9:28:00 CDT, Height, 97.727, kg, 11/22/19 9:28:00 CDT, Weight 24 HR 2020-0 Yes See Memoria mirabegron 7-03 Instructio l 50 MG 02:56: ns, TAKE 1 Apolinar n Extended 00 TABLET BY Release MOUTH Tablet EVERY DAY, [Myrbetriq] # 30 tab, 3 Refill(s), Pharmacy: [facility] STORE [id number], 160.02, cm, 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, Height, 98.636, kg, 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, Weight Myrbetriq 2020-0 Yes See Memoria 50 mg oral 7-03 Instructio l tablet, 02:56: ns, TAKE 1 Herm joaquin extended 00 TABLET BY release MOUTH EVERY DAY, # 30 tab, 3 Refill(s), Pharmacy: [facility] STORE [id number], 160.02, cm, 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, Height, 98.636, kg, 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, Weight 24 HR 2020-0 Yes See Memoria mirabegron 7-03 Instructio l 50 MG 02:56: ns, TAKE 1 Apolinar n Extended 00 TABLET BY Release MOUTH Tablet EVERY DAY, [Myrbetriq] # 30 tab, 3 Refill(s), Pharmacy: [facility] STORE [id number], 160.02, cm, 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, Height, 98.636, kg, 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, Weight Myrbetriq 2020-0 Yes See Memoria 50 mg oral 7-03 Instructio l tablet, 02:56: ns, TAKE 1 Herm joaquin extended 00 TABLET BY release MOUTH EVERY DAY, # 30 tab, 3 Refill(s), Pharmacy: [facility] STORE [id number], 160.02, cm, 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, Height, 98.636, kg, 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, Weight 24 HR 2020-0 Yes See Memoria mirabegron 7-03 Instructio l 50 MG 02:56: ns, TAKE 1 Apolinar n Extended 00 TABLET BY Release MOUTH Tablet EVERY DAY, [Myrbetriq] # 30 tab, 3 Refill(s), Pharmacy: [facility] STORE [id number], 160.02, cm, 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, Height, 98.636, kg, 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, Weight Myrbetriq 2020-0 Yes See Memoria 50 mg oral 7-03 Instructio l tablet, 02:56: ns, TAKE 1 Herm joaquin extended 00 TABLET BY release MOUTH EVERY DAY, # 30 tab, 3 Refill(s), Pharmacy: [facility] STORE [id number], 160.02, cm, 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, Height, 98.636, kg, 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, Weight 24 HR 2020-0 Yes See Memoria mirabegron 7-03 Instructio l 50 MG 02:56: ns, TAKE 1 Apolinar n Extended 00 TABLET BY Release MOUTH Tablet EVERY DAY, [Myrbetriq] # 30 tab, 3 Refill(s), Pharmacy: [facility] STORE [id number], 160.02, cm, 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, Height, 98.636, kg, 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, Weight Myrbetriq 2020-0 Yes See Memoria 50 mg oral 7-03 Instructio l tablet, 02:56: ns, TAKE 1 Herm joaquin extended 00 TABLET BY release MOUTH EVERY DAY, # 30 tab, 3 Refill(s), Pharmacy: [facility] STORE [id number], 160.02, cm, 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, Height, 98.636, kg, 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, Weight 24 HR 2020-0 Yes See Memoria mirabegron 7-03 Instructio l 50 MG 02:56: ns, TAKE 1 Apolinar n Extended 00 TABLET BY Release MOUTH Tablet EVERY DAY, [Myrbetriq] # 30 tab, 3 Refill(s), Pharmacy: [facility] STORE [id number], 160.02, cm, 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, Height, 98.636, kg, 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, Weight Myrbetriq 2020-0 Yes See Memoria 50 mg oral 7-03 Instructio l tablet, 02:56: ns, TAKE 1 Herm joaquin extended 00 TABLET BY release MOUTH EVERY DAY, # 30 tab, 3 Refill(s), Pharmacy: [facility] STORE [id number], 160.02, cm, 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, Height, 98.636, kg, 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, Weight 24 HR 2020-0 Yes See Memoria mirabegron 7-03 Instructio l 50 MG 02:56: ns, TAKE 1 Apolinar n Extended 00 TABLET BY Release MOUTH Tablet EVERY DAY, [Myrbetriq] # 30 tab, 3 Refill(s), Pharmacy: [facility] STORE [id number], 160.02, cm, 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, Height, 98.636, kg, 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, Weight Myrbetriq 2020-0 Yes See Memoria 50 mg oral 7-03 Instructio l tablet, 02:56: ns, TAKE 1 Herm joaquin extended 00 TABLET BY release MOUTH EVERY DAY, # 30 tab, 3 Refill(s), Pharmacy: [facility]ORE [id number], 160.02, cm, 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, Height, 98.636, kg, 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, Weight 24 HR 2020-0 Yes See Memoria mirabegron 7-03 Instructio l 50 MG 02:56: ns, TAKE 1 Apolinar n Extended 00 TABLET BY Release MOUTH Tablet EVERY DAY, [Myrbetriq] # 30 tab, 3 Refill(s), Pharmacy: [facility] STORE [id number], 160.02, cm, 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, Height, 98.636, kg, 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, Weight Myrbetriq 2020-0 Yes See Memoria 50 mg oral 7-03 Instructio l tablet, 02:56: ns, TAKE 1 Herm joaquin extended 00 TABLET BY release MOUTH EVERY DAY, # 30 tab, 3 Refill(s), Pharmacy: [facility]ORE [id number], 160.02, cm, 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, Height, 98.636, kg, 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, Weight 24 HR 2020-0 Yes 50 mg = 1 Memoria mirabegron 2-21 tab, PO, l 50 MG 22:09: Daily, # [place] Extended 30 tab, 3 Release Refill(s) Tablet [Myrbetriq] 24 HR 2020-0 Yes 50 mg = 1 Memoria mirabegron 2-21 tab, PO, l 50 MG 22:09: Daily, # [place] Extended 30 tab, 3 Release Refill(s) Tablet [Myrbetriq] 24 HR 2020-0 Yes 50 mg = 1 Memoria mirabegron 2-21 tab, PO, l 50 MG 22:09: Daily, # Ajit Extended 30 tab, 3 Release Refill(s) Tablet [Myrbetriq] 24 HR 2020-0 Yes 50 mg = 1 Memoria mirabegron 2-21 tab, PO, l 50 MG 22:09: Daily, # Ajit Extended 30 tab, 3 Release Refill(s) Tablet [Myrbetriq] 24 HR 2020-0 Yes 50 mg = 1 Memoria mirabegron 2-21 tab, PO, l 50 MG 22:09: Daily, # Ajit Extended 30 tab, 3 Release Refill(s) Tablet [Myrbetriq] 24 HR 2020-0 Yes 50 mg = 1 Memoria mirabegron 2-21 tab, PO, l 50 MG 22:09: Daily, # [place] Extended 30 tab, 3 Release Refill(s) Tablet [Myrbetriq] 24 HR 2020-0 Yes 50 mg = 1 Memoria mirabegron 2-21 tab, PO, l 50 MG 22:09: Daily, # [place] Extended 30 tab, 3 Release Refill(s) Tablet [Myrbetriq] [place] 2020-0 Yes 0 Memoria 2-21 Refill(s) l 21:31: Ajit 00 [place] 2020-0 Yes 0 Memoria 2-21 Refill(s) l 21:31: Ajit 00 [place] 2020-0 Yes 0 Memoria 2-21 Refill(s) l 21:31: Ajit 00 [place] 2020-0 Yes 0 Memoria 2-21 Refill(s) l 21:31: Ajit 00 [place] 2020-0 Yes 0 Memoria 2-21 Refill(s) l 21:31: Ajit 00 [place] 2020-0 Yes 0 Memoria 2-21 Refill(s) l 21:31: Ajit 00 [place] 2020-0 Yes 0 Memoria 2-21 Refill(s) l 21:31: Ajit 00 omeprazole 2020-0 Yes 0 Memoria 40 mg oral 1-08 Refill(s) l delayed 14:42: Ajit release 00 capsule rosuvastati 2020-0 Yes 0 Memori a n 10 mg 1-08 Refill(s) l oral tablet 14:42: Apolinar n 00 omeprazole 2020-0 Yes 0 Memoria 40 mg oral 1-08 Refill(s) l delayed 14:42: Ajit release 00 capsule rosuvastati 2020-0 Yes 0 Memori a n 10 mg 1-08 Refill(s) l oral tablet 14:42: Apolinar n 00 omeprazole 2020-0 Yes 0 Memoria 40 mg oral 1-08 Refill(s) l delayed 14:42: [place] release 00 capsule rosuvastati 2020-0 Yes 0 Memori a n 10 mg 1-08 Refill(s) l oral tablet 14:42: Apolinar n 00 omeprazole 2020-0 Yes 0 Memoria 40 mg oral 1-08 Refill(s) l delayed 14:42: Ajit release 00 capsule rosuvastati 2020-0 Yes 0 Memori a n 10 mg 1-08 Refill(s) l oral tablet 14:42: Apolinar n 00 omeprazole 2020-0 Yes 0 Memoria 40 mg oral 1-08 Refill(s) l delayed 14:42: Ajit release 00 capsule rosuvastati 2020-0 Yes 0 Memori a n 10 mg 1-08 Refill(s) l oral tablet 14:42: Apolinar n 00 omeprazole 2020-0 Yes 0 Memoria 40 mg oral 1-08 Refill(s) l delayed 14:42: Ajit release 00 capsule rosuvastati 2020-0 Yes 0 Memori a n 10 mg 1-08 Refill(s) l oral tablet 14:42: Apolinar n 00 omeprazole 2020- Yes 0 Memoria 40 mg oral 1-08 Refill(s) l delayed 14:42: Ajit release 00 capsule rosuvastati 2019-0 Yes 0 Memori a n 10 mg 1-08 Refill(s) l oral tablet 14:42: Apolinar n 00 Claritin Claritin No Claritin A zalea Liqui-Gel Liqui-Gel 4-26 Liqui-Gel [facility] 10 mg 10 mg 00:00: 10 mg dic capsule RX capsule RX 00 capsule RX Sports by other MD by other MD by other Quentin martin Premarin Premarin No Premarin A zalea 0.9 mg 0.9 mg 4-26 0.9 mg [facility] tablet RX tablet RX 00:00: tablet RX dic by other MD by other 00 by other Sports MD Quentin martin Claritin Claritin No Claritin A zalea Liqui-Gel Liqui-Gel 4-26 Liqui-Gel [facility] 10 mg 10 mg 00:00: 10 mg dic capsule RX capsule RX 00 capsule RX Sports by other MD by other MD by other Quentin martin Premarin Premarin No Premarin A zalea 0.9 mg 0.9 mg 4-26 0.9 mg [facility] tablet RX tablet RX 00:00: tablet RX dic by other MD by other 00 by other Sports MD Quentin martin Claraminata Claritin No Claritin A zalea Liqui-Gel Liqui-Gel 4-26 Liqui-Gel [facility] 10 mg 10 mg 00:00: 10 mg dic capsule RX capsule RX 00 capsule RX Sports by other MD by other MD by other Quentin martin Premarin Premarin No Premarin A zalea 0.9 mg 0.9 mg 4-26 0.9 mg [facility] tablet RX tablet RX 00:00: tablet RX dic by other MD by other 00 by other Sports MD Quentin martin amoxicillin amoxicillin No amoxicilli Maria Dolores [phone] [facility] mg-potassiu mg-potassiu mg-potassi dic m m Sports clavulanate clavulanate clavulanat Medicin 125 mg 125 mg e 125 mg e tablet TAKE tablet TAKE tablet ONE (1) ONE (1) TAKE ONE TABLET(S) TABLET(S) (1) BY MOUTH BY MOUTH TABLET(S) TWICE A DAY TWICE A DAY BY MOUTH FOR 10 FOR 10 TWICE A DAYS. DAYS. DAY FOR 10 DAYS. cephalexin cephalexin No cephalexin Maria Dolores 500 mg 500 mg 500 mg [facility] capsule capsule capsule dic TAKE 1 TAKE 1 TAKE 1 Sports CAPSULE BY CAPSULE BY CAPSULE BY Medicin MOUTH TWICE MOUTH TWICE MOUTH e A DAY FOR A DAY FOR TWICE A 10 DAYS 10 DAYS DAY FOR 10 DAYS clotrimazol clotrimazol No clotrimazo Maria Dolores e-betametha e-betametha le-betamet [facility] sone 1 sone 1 hasone 1 dic %-0.05 % %-0.05 % %-0.05 % Spo rts topical topical topical Medici n cream cream cream e TOPICAL TOPICAL TOPICAL APPLY TO APPLY TO APPLY TO AFFECTED AFFECTED AFFECTED AREA TWICE AREA TWICE AREA TWICE DAILY DAILY DAILY NEEDED NEEDED NEEDED erythromyci erythromyci No erythromyc Maria Dolores n 5 mg/gram n 5 mg/gram in 5 O rthope (0.5 %) eye (0.5 %) eye mg/gram dic ointment ointment (0.5 %) Spor ts APPLY AT APPLY AT eye Medicin BEDTIME FOR BEDTIME FOR ointment e 1 WEEK IN 1 WEEK IN APPLY AT BOTH EYES BOTH EYES BEDTIME FOR 1 WEEK IN BOTH EYES Ilevro 0.3 Ilevro 0.3 No Ilevro 0.3 Maria Dolores % eye % eye % eye Orthope drops,suspe drops,suspe drops,susp dic nsion nsion ension Sports INSTILL 1 INSTILL 1 INSTILL 1 Medicin DROP INTO DROP INTO DROP INTO e LEFT EYE LEFT EYE LEFT EYE DAY BEFORE DAY BEFORE DAY BEFORE SURGERY SURGERY SURGERY moxifloxaci moxifloxaci No moxifloxac Maria Dolores n 0.5 % eye n 0.5 % eye in 0.5 % Orthope drops 1 drops 1 eye drops dic DROP IN DROP IN 1 DROP IN Spor ts LEFT EYE LEFT EYE LEFT EYE Med icin TWICE A DAY TWICE A DAY TWICE A e THE DAY THE DAY DAY THE BEFORE BEFORE DAY BEFORE SURGERY SURGERY SURGERY omeprazole omeprazole No omeprazole Maria Dolores 40 mg 40 mg 40 mg Orth[facility] capsule,del capsule,del capsule,de dic ayed ayed layed Sports release release release Medici n TAKE 1 TAKE 1 TAKE 1 e CAPSULE BY CAPSULE BY CAPSULE BY MOUTH EVERY MOUTH EVERY MOUTH DAY DAY EVERY DAY prednisolon prednisolon No prednisolo Maria Dolores e acetate 1 e acetate 1 ne acetate Orthope % eye % eye 1 % eye dic drops,suspe drops,suspe drops,susp Sports nsion nsion ension Medicin INSTILL 1 INSTILL 1 INSTILL 1 e DROP TWICE DROP TWICE DROP TWICE A DAY INTO A DAY INTO A DAY INTO LEFT EYE X LEFT EYE X LEFT EYE X 2 WEEK THEN 2 WEEK THEN 2 WEEK DAILY FOR 2 DAILY FOR 2 THEN DAILY WEEK AFTER WEEK AFTER FOR 2 WEEK SURGERY SURGERY AFTER SURGERY Premarin Premarin No Premarin Aza juan luis 0.625 0.625 0.625 Orthope mg/gram mg/gram mg/gram dic vaginal vaginal vaginal Sports cream cream cream Medicin VAGINAL USE VAGINAL USE VAGINAL e ONE ONE USE ONE APPLICATOR APPLICATOR APPLICATOR THREE TIMES THREE TIMES THREE PER WEEK PER WEEK TIMES PER DIRECTED DIRECTED WEEK DIRECTED rosuvastati rosuvastati No rosuvastat Maria Dolores n 10 mg n 10 mg in 10 mg Ortho pe tablet TAKE tablet TAKE tablet dic 1 TABLET BY 1 TABLET BY TAKE 1 Sports MOUTH EVERY MOUTH EVERY TABLET BY Medicin DAY. PT DAY. PT MOUTH e NEEDS APPT! NEEDS APPT! EVERY DAY. PT NEEDS APPT! acetaminoph acetaminoph No 1 Q6H acetaminop Maria Dolores en 300 en 300 hen 300 [facility]ope mg-codeine mg-codeine mg-codeine dic 30 mg 30 mg 30 mg Sports tablet Take tablet Take tablet Medicin 1 tablet 1 tablet Take 1 e every 6 every 6 tablet hours by hours by every 6 oral route. oral route. hours by oral route. amoxicillin amoxicillin No amoxicilli Maria Dolores [phone] [phone] Orthope mg-potassiu mg-potassiu mg-potassi dic m m um Sports clavulanate clavulanate clavulanat Medicin 125 mg 125 mg e 125 mg e tablet TAKE tablet TAKE tablet ONE (1) ONE (1) TAKE ONE TABLET(S) TABLET(S) (1) BY MOUTH BY MOUTH TABLET(S) TWICE A DAY TWICE A DAY BY MOUTH FOR 10 FOR 10 TWICE A DAYS. DAYS. DAY FOR 10 DAYS. cephalexin cephalexin No cephalexin Maria Dolores 500 mg 500 mg 500 mg [facility] capsule capsule capsule dic TAKE 1 TAKE 1 TAKE 1 Sports CAPSULE BY CAPSULE BY CAPSULE BY Medicin MOUTH TWICE MOUTH TWICE MOUTH e A DAY FOR A DAY FOR TWICE A 10 DAYS 10 DAYS DAY FOR 10 DAYS clotrimazol clotrimazol No clotrimazo Maria Dolores e-betametha e-betametha le-betamet Orthope sone 1 sone 1 hasone 1 dic %-0.05 % %-0.05 % %-0.05 % Spo rts topical topical topical Medici n cream cream cream e TOPICAL TOPICAL TOPICAL APPLY TO APPLY TO APPLY TO AFFECTED AFFECTED AFFECTED AREA TWICE AREA TWICE AREA TWICE DAILY DAILY DAILY NEEDED NEEDED NEEDED erythromyci erythromyci No erythromyc Maria Dolores n 5 mg/gram n 5 mg/gram in 5 O rthope (0.5 %) eye (0.5 %) eye mg/gram dic ointment ointment (0.5 %) Spor ts APPLY AT APPLY AT eye Medicin BEDTIME FOR BEDTIME FOR ointment e 1 WEEK IN 1 WEEK IN APPLY AT BOTH EYES BOTH EYES BEDTIME FOR 1 WEEK IN BOTH EYES Ilevro 0.3 Ilevro 0.3 No Ilevro 0.3 Maria Dolores % eye % eye % eye [facility] drops,suspe drops,suspe drops,susp dic nsion nsion ension Sports INSTILL 1 INSTILL 1 INSTILL 1 Medicin DROP INTO DROP INTO DROP INTO e LEFT EYE LEFT EYE LEFT EYE DAY BEFORE DAY BEFORE DAY BEFORE SURGERY SURGERY SURGERY moxifloxaci moxifloxaci No moxifloxac Maria Dolores n 0.5 % eye n 0.5 % eye in 0.5 % Orthope drops 1 drops 1 eye drops dic DROP IN DROP IN 1 DROP IN Spor ts LEFT EYE LEFT EYE LEFT EYE Med icin TWICE A DAY TWICE A DAY TWICE A e THE DAY THE DAY DAY THE BEFORE BEFORE DAY BEFORE SURGERY SURGERY SURGERY omeprazole omeprazole No omeprazole Maria Dolores 40 mg 40 mg 40 mg [facility] capsule,del capsule,del capsule,de dic ayed ayed layed Sports release release release Medici n TAKE 1 TAKE 1 TAKE 1 e CAPSULE BY CAPSULE BY CAPSULE BY MOUTH EVERY MOUTH EVERY MOUTH DAY DAY EVERY DAY prednisolon prednisolon No prednisolo Maria Dolores e acetate 1 e acetate 1 ne acetate [facility] % eye % eye 1 % eye dic drops,suspe drops,suspe drops,susp Sports nsion nsion ension Medicin INSTILL 1 INSTILL 1 INSTILL 1 e DROP TWICE DROP TWICE DROP TWICE A DAY INTO A DAY INTO A DAY INTO LEFT EYE X LEFT EYE X LEFT EYE X 2 WEEK THEN 2 WEEK THEN 2 WEEK DAILY FOR 2 DAILY FOR 2 THEN DAILY WEEK AFTER WEEK AFTER FOR 2 WEEK SURGERY SURGERY AFTER SURGERY Premarin Premarin No Premarin Aza juan luis 0.625 0.625 0.625 [facility] mg/gram mg/gram mg/gram dic vaginal vaginal vaginal Sports cream cream cream Medicin VAGINAL USE VAGINAL USE VAGINAL e ONE ONE USE ONE APPLICATOR APPLICATOR APPLICATOR THREE TIMES THREE TIMES THREE PER WEEK PER WEEK TIMES PER DIRECTED DIRECTED WEEK DIRECTED rosuvastati rosuvastati No rosuvastat Maria Dolores n 10 mg n 10 mg in 10 mg Ortho pe tablet TAKE tablet TAKE tablet dic 1 TABLET BY 1 TABLET BY TAKE 1 Sports MOUTH EVERY MOUTH EVERY TABLET BY Medicin DAY. PT DAY. PT MOUTH e NEEDS APPT! NEEDS APPT! EVERY DAY. PT NEEDS APPT! acetaminoph acetaminoph No acetaminop Maria Dolores en 300 en 300 hen 300 [facility] mg-codeine mg-codeine mg-codeine dic 30 mg 30 mg 30 mg Sports tablet TAKE tablet TAKE tablet Medicin 1 TABLET BY 1 TABLET BY TAKE 1 e MOUTH EVERY MOUTH EVERY TABLET BY 6 HOURS 6 HOURS MOUTH EVERY 6 HOURS amoxicillin amoxicillin No amoxicilli Amria Dolores [phone] Orthope mg-potassiu mg-potassiu mg-potassi dic m m um Sports clavulanate clavulanate clavulanat Medicin 125 mg 125 mg e 125 mg e tablet TAKE tablet TAKE tablet ONE (1) ONE (1) TAKE ONE TABLET(S) TABLET(S) (1) BY MOUTH BY MOUTH TABLET(S) TWICE A DAY TWICE A DAY BY MOUTH FOR 10 FOR 10 TWICE A DAYS. DAYS. DAY FOR 10 DAYS. cephalexin cephalexin No cephalexin [facility] Dolores 500 mg 500 mg 500 mg [facility] capsule capsule capsule dic TAKE 1 TAKE 1 TAKE 1 Sports CAPSULE BY CAPSULE BY CAPSULE BY Medicin MOUTH TWICE MOUTH TWICE MOUTH e A DAY FOR A DAY FOR TWICE A 10 DAYS 10 DAYS DAY FOR 10 DAYS clotrimazol clotrimazol No clotrimazo [facility] e-betametha e-betametha le-betamet [facility] sone 1 sone 1 hasone 1 dic %-0.05 % %-0.05 % %-0.05 % Spo rts topical topical topical Medici n cream cream cream e TOPICAL TOPICAL TOPICAL APPLY TO APPLY TO APPLY TO AFFECTED AFFECTED AFFECTED AREA TWICE AREA TWICE AREA TWICE DAILY DAILY DAILY NEEDED NEEDED NEEDED erythromyci erythromyci No erythromyc Maria [facility]ores n 5 mg/gram n 5 mg/gram in 5 [facility] (0.5 %) eye (0.5 %) eye mg/gram dic ointment ointment (0.5 %) Spor ts APPLY AT APPLY AT eye Medicin BEDTIME FOR BEDTIME FOR ointment e 1 WEEK IN 1 WEEK IN APPLY AT BOTH EYES BOTH EYES BEDTIME FOR 1 WEEK IN BOTH EYES Ilevro 0.3 Ilevro 0.3 No Ilevro 0.3 Maria Dolores % eye % eye % eye [facility] drops,suspe drops,suspe drops,susp dic nsion nsion ension Sports INSTILL 1 INSTILL 1 INSTILL 1 Medicin DROP INTO DROP INTO DROP INTO e LEFT EYE LEFT EYE LEFT EYE DAY BEFORE DAY BEFORE DAY BEFORE SURGERY SURGERY SURGERY moxifloxaci moxifloxaci No moxifloxac [facility] n 0.5 % eye n 0.5 % eye in 0.5 % [facility] drops 1 drops 1 eye drops dic DROP IN DROP IN 1 DROP IN Spor ts LEFT EYE LEFT EYE LEFT EYE Med icin TWICE A DAY TWICE A DAY TWICE A e THE DAY THE DAY DAY THE BEFORE BEFORE DAY BEFORE SURGERY SURGERY SURGERY omeprazole omeprazole No omeprazole Maria Dolores 40 mg 40 mg 40 mg Orthope capsule,del capsule,del capsule,de dic ayed ayed layed Sports release release release Medici n TAKE 1 TAKE 1 TAKE 1 e CAPSULE BY CAPSULE BY CAPSULE BY MOUTH EVERY MOUTH EVERY MOUTH DAY DAY EVERY DAY prednisolon prednisolon No prednisolo Maria Dolores e acetate 1 e acetate 1 ne acetate Orthope % eye % eye 1 % eye dic drops,suspe drops,suspe drops,susp Sports nsion nsion ension Medicin INSTILL 1 INSTILL 1 INSTILL 1 e DROP TWICE DROP TWICE DROP TWICE A DAY INTO A DAY INTO A DAY INTO LEFT EYE X LEFT EYE X LEFT EYE X 2 WEEK THEN 2 WEEK THEN 2 WEEK DAILY FOR 2 DAILY FOR 2 THEN DAILY WEEK AFTER WEEK AFTER FOR 2 WEEK SURGERY SURGERY AFTER SURGERY Premarin Premarin No Premarin Aza juan luis 0.625 0.625 0.625 Orthope mg/gram mg/gram mg/gram dic vaginal vaginal vaginal Sports cream cream cream Medicin VAGINAL USE VAGINAL USE VAGINAL e ONE ONE USE ONE APPLICATOR APPLICATOR APPLICATOR THREE TIMES THREE TIMES THREE PER WEEK PER WEEK TIMES PER DIRECTED DIRECTED WEEK DIRECTED rosuvastati rosuvastati No rosuvastat Maria Dolores n 10 mg n 10 mg in 10 mg Ortho pe tablet TAKE tablet TAKE tablet dic 1 TABLET BY 1 TABLET BY TAKE 1 Sports MOUTH EVERY MOUTH EVERY TABLET BY Medicin DAY. PT DAY. PT MOUTH e NEEDS APPT! NEEDS APPT! EVERY DAY. PT NEEDS APPT! Vital Signs Vital Name Observation Time Observation Value Comments Source Height 2022-09-18 00:00:00 63 [in_i] [facility] Height 2022-08-27 00:00:00 63 [in_i] [facility] BMI (Body Mass 2022-08-27 00:00:00 32.8 kg/m2 Maria Dolores Orthopedic Index) Sports Medicine Body Weight 2022-08-27 00:00:00 185 [lb_av] [facility] Height 2022-03-18 18:23:00 5 [facility]ft_i[facility] 2022-03-18 18:23:00 [facility] BMI Calculated 2022-03-18 18:23:00 [facility] Height 2020-09-19 18:13:00 154.94 cm [facility] Weight 2020-09-19 18:13:00 [facility] BMI Calculated 2020-09-19 18:13:00 [facility] Height 2020-04-10 14:55:00 154.94 cm [facility] Weight 2020-04-10 14:55:00 [facility] BMI Calculated 2020-04-10 14:55:00 [facility] Height 2020-02-21 13:43:00 157.48 cm [facility] [place] Weight 2020-02-21 13:43:00 [facility] BMI Calculated 2020-02-21 13:43:00 [facility] Height 2019-11-22 14:28:00 157.48 cm [facility] [place] Weight 2019-11-22 14:28:00 [facility] BMI Calculated 2019-11-22 14:28:00 [facility] Height 2019-06-30 21:27:00 160.02 cm [facility] [place] Weight 2019-06-30 21:27:00 [facility] BMI Calculated 2019-06-30 21:27:00 [facility] Systolic (mm Hg) 2019-05-17 14:35:00 [place] [facility] [place] Diastolic (mm Hg) 2019-05-17 14:35:00 [facility] [place] Heart Rate 2019-05-17 14:35:00 [facility] [place] Height 2019-05-17 14:35:00 160.02 cm [facility] [place] Weight 2019-05-17 14:35:00 [facility] BMI Calculated 2019-05-17 14:35:00 [facility] [place] Procedures Procedure Date / Time Performing Clinician Source Performed XR, finger(s), 2 or more 2022-08-27 00:00:00 Ajay mcknight Orthopedic view Sports Medicine Cystourethroscopy (separate 2019-06-30 22:14:00 [facility] procedure) Measurement of post-voiding 2019-05-17 15:08:00 [facility] [place] residual urine and/or bladder capacity by ultrasound, non-imaging Blepharoplasty of both [facility] eyelids Meniscal repair [facility] [place] Hysterectomy [facility] [place] Cholecystectomy [facility] [place] Encounters Start End Encounter Admission Attending Care Care Encounter Source Date/Time Date/Time Type Type Clinicians Facility Department ID 2022-10-19 2022-10-19 Ambulatory IE [facility] [id number] Memoria 13:45:00 13:45:00 Pre-Reg Specialty 10 l Clinic [facility] 2022-10-19 2022-10-19 Outpatient MHIE IE [id number] Memoria 08:45:00 08:45:00 10 l Ajit 2022-10-19 2022-10-19 Outpatient IE IE [id number] Memoria 08:45:00 08:45:00 10 l Ajit 2022-10-19 2022-10-19 Outpatient Osmany [facility] [id number] 08:45:00 08:45:00 Ariela L 10 2022-09-21 2022-09-21 Outpatient FOG_Luo_Ran AOSM AOSM [id number] Maria Dolores 00:00:00 00:00:00 Lizzette [id number] Orthop e dic Sports Medicin e 2022-09-18 2022-09-18 Raghu Connors AOSM [place] - Ortho [id number] Maria Dolores 00:00:00 00:00:00 MD Lamin: iDana magana [address] FOG_Ofc dic [facility] S[facility], [place] [address] , Ph. [phone] 2022-09-04 2022-09-04 Outpatient EL Raghu Kimble [facility] Y [id number] [facility] 06:42:00 06:42:[address] [place] [address] Orthope dic Hospita l 2022-09-04 2022-09-04 Raghu Connors AOS[facility] [place] - Ortho [id number] Maria Dolores 00:00:00 00:00:00 MD Lamin: Diana magana [address] FOG_Surgery di c [facility], [facility], [place] [address] , Ph. [phone] 2022-08-31 2022-08-31 Outpatient FOG_Luo_Ran AOSM AOSM [id number] Maria Dolores 00:00:00 00:00:00 Lizzette [id number] Orthop e dic Sports Medicin e 2022-08-31 2022-08-31 Outpatient FOG_Luo_Ran AOSM AOSM [id number] Maria Dolores 00:00:00 00:00:00 Lizzette [id number] Orthop e dic Sports Medicin e 2022-08-31 2022-08-31 Outpatient FOG_Luo_Ran AOSM AOSM [id number] Maria Dolores 00:00:00 00:00:00 Lizzette [id number] Orthop e dic Sports Medicin e 2022-08-31 2022-08-31 Outpatient FOG_Luo_Ran AOSM AOSM [id number] Maria Dolores 00:00:00 00:00:00 Lizzette [id number] Orthop e dic Sports Medicin e 2022-08-27 2022-08-27 Outpatient FOG_Luo_Ran AOSM AOSM [id number] Maria Dolores 00:00:00 00:00:00 Lizzette [id number] Orthop e dic Sports Medicin e 2022-08-27 2022-08-27 Raghu Y AOSM [place] - Ortho [id number] Maria Dolores 00:00:00 00:00:00 MD Lamin: Diana magana [address] FOG_Ofc dic [facility] [place] [place], [place] [address] , Ph. [phone] 2022-08-26 2022-08-26 Outpatient FOG_Luo_Ran AOSM AOSM [id number] Maria Dolores 00:00:00 00:00:00 Lizzette [id number] Orthop e dic Sports Medicin e 2022-08-25 2022-08-25 Outpatient FOG_Luo_Ran AOSM AOSM [id number] Maria Dolores 00:00:00 00:00:00 Lizzette [id number] Orthop e dic Sports Medicin e 2022-04-20 2022-04-21 Outpatient MHIE MG Multi [id number] Memoria 19:35:00 05:59:[address] [place] [address] 2022-04-20 2022-04-21 Outpatient MHIE MG Multi [id number] Memoria 19:35:00 05:59:[address] [place] [address] 2022-04-20 2022-04-20 Outpatient Osmany [facility] [id number] 13:35:00 23:59:59 Ariela L 2022-04-20 2022-04-20 Outpatient MHIE MANUEL [id number] Memoria 13:35:00 13:35:00 09 [facility] 2022-03-18 2022-03-19 [place] [id number] Memoria 17:30:00 05:59:59 r Urology 08 l [facility] nn Time Share 2022-03-18 2022-03-19 [place] [id number] Memoria 17:30:00 05:59:59 r Urology 08 l [facility] nn Time Share 2022-03-18 2022-03-18 Outpatient Osmany [facility] [id number] 11:30:00 23:59:59 Ariela L 2022-03-18 2022-03-18 Outpatient MHIE KRISTINIE [id number] Memoria 11:30:00 11:30:00 08 [place] 2020-12-30 2020-12-30 Ambulatory nullFlavo [facility] Multi 39 [id number] Memoria 15:00:00 15:00:00 Pre-Reg r Specialty 07 l [facility] 2020-12-30 2020-12-30 Ambulatory nullFlavo [facility] Multi 39 [id number] Memoria 15:00:00 15:00:00 Pre-Reg r Specialty 07 l [facility] 2020-12-30 2020-12-30 Outpatient MHIE MANUEL [id number] Memoria 10:00:00 10:00:00 07 laura MarlowAjit 2020-12-30 2020-12-30 [facility] [id number] 10:00:00 10:00:00 Ariela L 2020-09-19 2020-09-20 [place] [id number] Memoria 18:30:00 04:59:59 r [facility] 2020-09-[facility] 2020-09-20 [place] [id number] Memoria 18:30:00 04:59:59 r Urology 06 l Renetta Marlowa [facility] 2020-09-19 2020-09-19 Outpatient Osmany, MG [place] [id number] 13:30:00 23:59:59 Ariela L 2020-09-19 2020-09-19 Outpatient MANUEL JACKSON [id number] Memoria 13:30:00 13:30:00 06 [place] 2020-04-10 2020-04-11 Outpatient nullFlavo MG Multi 39 [id number] Memoria 15:00:00 05:59:59 r Specialty 05 l [facility] 2020-04-10 2020-04-11 Outpatient nullFlavo [facility] Multi 39 [id number] Memoria 15:00:00 05:59:59 r Specialty 05 l [facility] 2020-04-10 2020-04-10 Outpatient Osmany MG MG [id number] 09:00:00 23:59:59 Ariela L 05 2020-04-10 2020-04-10 Outpatient MHIE KRISTINIE [id number] Memoria 09:00:00 09:00:00 05 [facility] 2020-02-21 2020-02-22 Outpatient nullFlavo MG Multi 39 [id number] Memoria 13:45:00 04:59:59 r Specialty 04 l [facility] 2020-02-21 2020-02-22 Outpatient nullFlavo [facility] Multi 39 [id number] Memoria 13:45:00 04:59:59 r Specialty 04 l [facility] 2020-02-21 2020-02-21 Outpatient Staller, MHMG MG [id number] 08:45:00 23:59:59 Ariela L 04 2020-02-21 2020-02-21 Outpatient MHIE MHIE [id number] Memoria 08:45:00 08:45:00 04 [facility] 2019-11-22 2019-11-23 Outpatient nullFlavo MG Multi 39 [id number] Memoria 14:20:00 04:59:59 r Specialty 03 l [facility] 2019-11-22 2019-11-23 Outpatient nullFlavo MG Multi 39 [id number] Memoria 14:20:00 04:59:59 r Specialty 03 l [facility] 2019-11-22 2019-11-22 Outpatient Staller, MG MG [id number] 09:20:00 23:59:59 Ariela L 03 2019-11-22 2019-11-22 Outpatient MHIE MHIE [id number] Memoria 09:20:00 09:20:00 03 laura [place] 2019-11-10 2019-11-11 Between nullFlavo MG [id number] Memoria 02:56:01 02:56:01 Visit r Urology 04 laura Mclain [facility] 2019-11-10 2019-11-11 Between nullFlavo MG [id number] Memoria 02:56:01 02:56:01 Visit r Urology 04 laura rachel [place] 2019-11-09 2019-11-10 Outpatient MHMG MHMG [id number] 21:56:01 21:56:01 2019-06-30 2019-07-01 [place] [id number] Memoria 21:30:00 05:59:59 r Urology 01 l Renetta rachel Time [facility] 2019-06-30 2019-07-01 Outpatient nullFlavo MHMG [id number] Memoria 21:30:00 05:59:59 r Urology 01 l [facility] Time [facility] 2019-06-30 2019-06-30 Outpatient Osmany, MHMG MHMG [id number] 15:30:00 23:59:59 Ariela L 01 2019-06-30 2019-06-30 Outpatient MHIE MHIE [id number] Memoria 15:30:00 15:30:00 01 [facility] 2019-05-23 2019-05-24 Outpatient nullFlavo [facility] [id number] Memoria 19:09:00 05:59:00 r [place] 01 [facility] 2019-05-23 2019-05-24 Outpatient nullFlavo [facility] [id number] Memoria 19:09:00 05:59:00 r [place] 01 [facility] 2019-05-23 2019-05-23 Outpatient Osmany SE MHSE [id number] 13:09:00 23:59:00 Ariela L 2019-05-23 2019-05-23 Outpatient MHSE MIR [id number] 13:09:00 13:09:00 [facility] 2019-05-22 2019-05-23 Outpatient nullFlavo MG Multi 39 [id number] Memoria 15:00:00 05:59:59 r Specialty 02 [facility] 2019-05-22 2019-05-23 Outpatient nullFlavo [facility] Multi 39 [id number] Memoria 15:00:00 05:59:59 r Specialty 02 l [facility] 2019-05-22 2019-05-22 Outpatient Osmany MG MG [id number] 09:00:00 23:59:59 Ariela L 2019-05-22 2019-05-22 Outpatient MHIE MHIE [id number] Memoria 09:00:00 09:00:00 02 [facility] 2019-05-17 2019-05-18 Outpatient nullFlavo [facility] Multi 39 [id number] Memoria 14:30:00 05:59:59 r Specialty 00 l [facility] 2019-05-17 2019-05-18 Outpatient nullFlavo [facility] Multi 39 [id number] Memoria 14:30:00 05:59:59 r Specialty 00 l [facility] 2019-05-17 2019-05-17 Outpatient EDE Ceron [facility] [id number] 08:30:00 23:59:59 Ariela L 00 2019-05-17 2019-05-17 Outpatient KRISTINBRIE BRIE [id number] Memoria 08:30:00 08:30:00 00 l Ajit Results Test Description Test Time Test Comments Results Result Comments Source REFERENCE LAB RESULTS 2022-03-18 19:13:00 Test Item Value Reference Range Interpretation Comme nts Result 2 (Urine Culture) (test code = Result 2 (Urine See Result Co mment Culture)) [facility] LAB [id number] 19:13:00 Test Item Value Reference Range Interpretation Comments Result 2 (Urine Culture) See Result Comment (test code = Result 2 (Urine Culture)) [facility] [employer] EnergyFORMERLY [facility] [id number] 19:13:00 Test Item Value Reference Range Interpretation Comments Result 2 (Urine Culture) See Result Comment (test code = Result 2 (Urine Culture)) [facility] LAB [id number] 19:13:00 Test Item Value Reference Range Interpretation Comments Result 2 (Urine Culture) See Result Comment (test code = Result 2 (Urine Culture)) [facility] luma-idannREFOrange LeapFORMERLY [facility] LAB [id number] 19:13:00 Test Item Value Reference Range Interpretation Comments Result 2 (Urine Culture) See Result Comment (test code = Result 2 (Urine Culture)) [facility] luma-idannShanghai E&P InternationalFORMERLY [facility] [id number] 19:13:00 Test Item Value Reference Range Interpretation Comments Result 2 (Urine Culture) See Result Comment (test code = Result 2 (Urine Culture)) [facility] [employer] LAB [id number] 19:13:00 Test Item Value Reference Range Interpretation Comments Result 2 (Urine Culture) See Result Comment (test code = Result 2 (Urine Culture)) Memorial luma-idannREFDVS SciencesE LAB [id number] 18:55:00 Test Item Value Reference Range Interpretation Comments Result 2 (Urine Culture) See Result Comment (test code = Result 2 (Urine Culture)) [facility] luma-idannStarMobile LAB [id number] 18:55:00 Test Item Value Reference Range Interpretation Comments Result 2 (Urine Culture) See Result Comment (test code = Result 2 (Urine Culture)) [facility] [id number] 18:55:00 Test Item Value Reference Range Interpretation Comments Result 2 (Urine Culture) See Result Comment (test code = Result 2 (Urine Culture)) [facility] [id number] 18:55:00 Test Item Value Reference Range Interpretation Comments Result 2 (Urine Culture) See Result Comment (test code = Result 2 (Urine Culture)) [facility]annREFCENTENNIAL HILLS HOSPITALE LAB [id number] 18:55:00 Test Item Value Reference Range Interpretation Comments Result 2 (Urine Culture) See Result Comment (test code = Result 2 (Urine Culture)) [facility] [id number] 18:55:00 Test Item Value Reference Range Interpretation Comments Result 2 (Urine Culture) See Result Comment (test code = Result 2 (Urine Culture)) [facility] [id number] 18:55:00 Test Item Value Reference Range Interpretation Comments Result 2 (Urine Culture) See Result Comment (test code = Result 2 (Urine Culture)) [facility] [id number] 18:43:00 Test Item Value Reference Range Interpretation Comments POC UA Color (test Yellow *NA*(09/19/20 code = POC UA Color) 1:43 PM) [facility] [id number] 18:43:00 Test Item Value Reference Range Interpretation Comments POC UA Turbidity (test Clear *NA*(09/19/20 code = POC UA Turbidity) 1:43 PM) [facility] [id number] 18:43:00 Test Item Value Reference Range Interpretation Comments POC UA SG (test code = POC UA SG) 1.010 1 [facility] [id number] 18:43:00 Test Item Value Reference Range Interpretation Comments POC UA pH (test code = POC UA pH) 6.0 1 5.0-8.0 [facility] [id number] 18:43:00 Test Item Value Reference Range Interpretation Comments POC UA Prot (test code = POC Negative mg/dL UA Prot) [facility] [id number] 18:43:00 Test Item Value Reference Range Interpretation Comments POC UA Glu (test code = POC UA Negative mg/dL Glu) [facility] [id number] 18:43:00 Test Item Value Reference Range Interpretation Comments POC UA Ket (test code = POC UA Negative mg/dL Ket) [facility] [id number] 18:43:00 Test Item Value Reference Range Interpretation Comments POC UA Bili (test Negative *NA*(09/19/20 code = POC UA Bili) 1:43 PM) [facility] [id number] 18:43:00 Test Item Value Reference Range Interpretation Comments POC UA Bld (test code Negative *NA*(09/19/20 = POC UA Bld) 1:43 PM) [facility] [id number] 18:43:00 Test Item Value Reference Range Interpretation Comments POC UA Uro (test code = POC UA Uro) 0.2 0.1-1.0 [facility] [id number] 18:43:00 Test Item Value Reference Range Interpretation Comments POC UA Nit (test code Negative *NA*(09/19/20 = POC UA Nit) 1:43 PM) [facility] [id number] 18:43:00 Test Item Value Reference Range Interpretation Comments POC UA LeukEst (test Negative *NA*(09/19/20 code = POC UA LeukEst) 1:43 PM) [facility] [id number] 18:43:00 Test Item Value Reference Range Interpretation Comments POC UA Color (test Yellow *NA*(09/19/20 code = POC UA Color) 1:43 PM) [facility] [id number] 18:43:00 Test Item Value Reference Range Interpretation Comments POC UA Turbidity (test Clear *NA*(09/19/20 code = POC UA Turbidity) 1:43 PM) [facility] [id number] 18:43:00 Test Item Value Reference Range Interpretation Comments POC UA SG (test code = POC UA SG) 1.010 1 [facility] [id number] 18:43:00 Test Item Value Reference Range Interpretation Comments POC UA pH (test code = POC UA pH) 6.0 1 5.0-8.0 [facility] [id number] 18:43:00 Test Item Value Reference Range Interpretation Comments POC UA Prot (test code = POC Negative mg/dL UA Prot) [facility] [id number] 18:43:00 Test Item Value Reference Range Interpretation Comments POC UA Glu (test code = POC UA Negative mg/dL Glu) [facility] [id number] 18:43:00 Test Item Value Reference Range Interpretation Comments POC UA Ket (test code = POC UA Negative mg/dL Ket) [facility] [id number] 18:43:00 Test Item Value Reference Range Interpretation Comments POC UA Bili (test Negative *NA*(09/19/20 code = POC UA Bili) 1:43 PM) [facility] [id number] 18:43:00 Test Item Value Reference Range Interpretation Comments POC UA Bld (test code Negative *NA*(09/19/20 = POC UA Bld) 1:43 PM) [facility] [id number] 18:43:00 Test Item Value Reference Range Interpretation Comments POC UA Uro (test code = POC UA Uro) 0.2 0.1-1.0 [facility] [id number] 18:43:00 Test Item Value Reference Range Interpretation Comments POC UA Nit (test code Negative *NA*(09/19/20 = POC UA Nit) 1:43 PM) [facility] [id number] 18:43:00 Test Item Value Reference Range Interpretation Comments POC UA LeukEst (test Negative *NA*(09/19/20 code = POC UA LeukEst) 1:43 PM) [facility] [id number] 18:43:00 Test Item Value Reference Range Interpretation Comments POC UA Color (test Yellow *NA*(09/19/20 code = POC UA Color) 1:43 PM) [facility] [id number] 18:43:00 Test Item Value Reference Range Interpretation Comments POC UA Turbidity (test Clear *NA*(09/19/20 code = POC UA Turbidity) 1:43 PM) [facility] [id number] 18:43:00 Test Item Value Reference Range Interpretation Comments POC UA SG (test code = POC UA SG) 1.010 1 [facility] [id number] 18:43:00 Test Item Value Reference Range Interpretation Comments POC UA pH (test code = POC UA pH) 6.0 1 5.0-8.0 [facility] [id number] 18:43:00 Test Item Value Reference Range Interpretation Comments POC UA Prot (test code = POC Negative mg/dL UA Prot) [facility] [id number] 18:43:00 Test Item Value Reference Range Interpretation Comments POC UA Glu (test code = POC UA Negative mg/dL Glu) [facility] [id number] 18:43:00 Test Item Value Reference Range Interpretation Comments POC UA Ket (test code = POC UA Negative mg/dL Ket) [facility] [id number] 18:43:00 Test Item Value Reference Range Interpretation Comments POC UA Bili (test Negative *NA*(09/19/20 code = POC UA Bili) 1:43 PM) [facility] [id number] 18:43:00 Test Item Value Reference Range Interpretation Comments POC UA Bld (test code Negative *NA*(09/19/20 = POC UA Bld) 1:43 PM) [facility] [id number] 18:43:00 Test Item Value Reference Range Interpretation Comments POC UA Uro (test code = POC UA Uro) 0.2 0.1-1.0 [facility] [id number] 18:43:00 Test Item Value Reference Range Interpretation Comments POC UA Nit (test code Negative *NA*(09/19/20 = POC UA Nit) 1:43 PM) [facility] [id number] 18:43:00 Test Item Value Reference Range Interpretation Comments POC UA LeukEst (test Negative *NA*(09/19/20 code = POC UA LeukEst) 1:43 PM) [facility] [id number] 18:43:00 Test Item Value Reference Range Interpretation Comments POC UA Color (test Yellow *NA*(09/19/20 code = POC UA Color) 1:43 PM) [facility] [id number] 18:43:00 Test Item Value Reference Range Interpretation Comments POC UA Turbidity (test Clear *NA*(09/19/20 code = POC UA Turbidity) 1:43 PM) [facility] [id number] 18:43:00 Test Item Value Reference Range Interpretation Comments POC UA SG (test code = POC UA SG) 1.010 1 [facility] [id number] 18:43:00 Test Item Value Reference Range Interpretation Comments POC UA pH (test code = POC UA pH) 6.0 1 5.0-8.0 [facility] [id number] 18:43:00 Test Item Value Reference Range Interpretation Comments POC UA Prot (test code = POC Negative mg/dL UA Prot) [facility] [id number] 18:43:00 Test Item Value Reference Range Interpretation Comments POC UA Glu (test code = POC UA Negative mg/dL Glu) [facility] [id number] 18:43:00 Test Item Value Reference Range Interpretation Comments POC UA Ket (test code = POC UA Negative mg/dL Ket) [facility] [id number] 18:43:00 Test Item Value Reference Range Interpretation Comments POC UA Bili (test Negative *NA*(09/19/20 code = POC UA Bili) 1:43 PM) [facility] [id number] 18:43:00 Test Item Value Reference Range Interpretation Comments POC UA Bld (test code Negative *NA*(09/19/20 = POC UA Bld) 1:43 PM) [facility] [id number] 18:43:00 Test Item Value Reference Range Interpretation Comments POC UA Uro (test code = POC UA Uro) 0.2 0.1-1.0 [facility] [id number] 18:43:00 Test Item Value Reference Range Interpretation Comments POC UA Nit (test code Negative *NA*(09/19/20 = POC UA Nit) 1:43 PM) [facility] [id number] 18:43:00 Test Item Value Reference Range Interpretation Comments POC UA LeukEst (test Negative *NA*(09/19/20 code = POC UA LeukEst) 1:43 PM) [facility] [id number] 18:43:00 Test Item Value Reference Range Interpretation Comments POC UA Color (test Yellow *NA*(09/19/20 code = POC UA Color) 1:43 PM) [facility] [id number] 18:43:00 Test Item Value Reference Range Interpretation Comments POC UA Turbidity (test Clear *NA*(09/19/20 code = POC UA Turbidity) 1:43 PM) [facility] [id number] [facility]:43:00 Test Item Value Reference Range Interpretation Comments POC UA SG (test code = POC UA SG) 1.010 1 [facility] [id number] 18:43:00 Test Item Value Reference Range Interpretation Comments POC UA pH (test code = POC UA pH) 6.0 1 5.0-8.0 [facility] [id number] 18:43:00 Test Item Value Reference Range Interpretation Comments POC UA Prot (test code = POC Negative mg/dL UA Prot) [facility] [id number] 18:43:00 Test Item Value Reference Range Interpretation Comments POC UA Glu (test code = POC UA Negative mg/dL Glu) [facility] [id number] 18:43:00 Test Item Value Reference Range Interpretation Comments POC UA Ket (test code = POC UA Negative mg/dL Ket) [facility] [id number] 18:43:00 Test Item Value Reference Range Interpretation Comments POC UA Bili (test Negative *NA*(09/19/20 code = POC UA Bili) 1:43 PM) [facility] [id number] 18:43:00 Test Item Value Reference Range Interpretation Comments POC UA Bld (test code Negative *NA*(09/19/20 = POC UA Bld) 1:43 PM) [facility] [id number] 18:43:00 Test Item Value Reference Range Interpretation Comments POC UA Uro (test code = POC UA Uro) 0.2 0.1-1.0 [facility] [id number] 18:43:00 Test Item Value Reference Range Interpretation Comments POC UA Nit (test code Negative *NA*(09/19/20 = POC UA Nit) 1:43 PM) [facility] [id number] 18:43:00 Test Item Value Reference Range Interpretation Comments POC UA LeukEst (test Negative *NA*(09/19/20 code = POC UA LeukEst) 1:43 PM) [facility] [id number] 18:43:00 Test Item Value Reference Range Interpretation Comments POC UA Color (test Yellow *NA*(09/19/20 code = POC UA Color) 1:43 PM) [facility] [id number] 18:43:00 Test Item Value Reference Range Interpretation Comments POC UA Turbidity (test Clear *NA*(09/19/20 code = POC UA Turbidity) 1:43 PM) [facility] [id number] 18:43:00 Test Item Value Reference Range Interpretation Comments POC UA SG (test code = POC UA SG) 1.010 1 [facility] [id number] 18:43:00 Test Item Value Reference Range Interpretation Comments POC UA pH (test code = POC UA pH) 6.0 1 5.0-8.0 [facility] [id number] 18:43:00 Test Item Value Reference Range Interpretation Comments POC UA Prot (test code = POC Negative mg/dL UA Prot) [facility] [id number] 18:43:00 Test Item Value Reference Range Interpretation Comments POC UA Glu (test code = POC UA Negative mg/dL Glu) [facility] [id number] 18:43:00 Test Item Value Reference Range Interpretation Comments POC UA Ket (test code = POC UA Negative mg/dL Ket) [facility] [id number] 18:43:00 Test Item Value Reference Range Interpretation Comments POC UA Bili (test Negative *NA*(09/19/20 code = POC UA Bili) 1:43 PM) [facility] [id number] 18:43:00 Test Item Value Reference Range Interpretation Comments POC UA Bld (test code Negative *NA*(09/19/20 = POC UA Bld) 1:43 PM) [facility] [id number] 18:43:00 Test Item Value Reference Range Interpretation Comments POC UA Uro (test code = POC UA Uro) 0.2 0.1-1.0 [facility] [id number] 18:43:00 Test Item Value Reference Range Interpretation Comments POC UA Nit (test code Negative *NA*(09/19/20 = POC UA Nit) 1:43 PM) [facility] [id number] 18:43:00 Test Item Value Reference Range Interpretation Comments POC UA LeukEst (test Negative *NA*(09/19/20 code = POC UA LeukEst) 1:43 PM) [facility] [id number] 18:43:00 Test Item Value Reference Range Interpretation Comments POC UA Color (test Yellow *NA*(09/19/20 code = POC UA Color) 1:43 PM) [facility] [id number] 18:43:00 Test Item Value Reference Range Interpretation Comments POC UA Turbidity (test Clear *NA*(09/19/20 code = POC UA Turbidity) 1:43 PM) [facility] [id number] 18:43:00 Test Item Value Reference Range Interpretation Comments POC UA SG (test code = POC UA SG) 1.010 1 [facility] [id number] 18:43:00 Test Item Value Reference Range Interpretation Comments POC UA pH (test code = POC UA pH) 6.0 1 5.0-8.0 [facility] [id number] 18:43:00 Test Item Value Reference Range Interpretation Comments POC UA Prot (test code = POC Negative mg/dL UA Prot) [facility] [id number] 18:43:00 Test Item Value Reference Range Interpretation Comments POC UA Glu (test code = POC UA Negative mg/dL Glu) [facility] [id number] 18:43:00 Test Item Value Reference Range Interpretation Comments POC UA Ket (test code = POC UA Negative mg/dL Ket) [facility] [id number] 18:43:00 Test Item Value Reference Range Interpretation Comments POC UA Bili (test Negative *NA*(09/19/20 code = POC UA Bili) 1:43 PM) [facility] [id number] 18:43:00 Test Item Value Reference Range Interpretation Comments POC UA Bld (test code Negative *NA*(09/19/20 = POC UA Bld) 1:43 PM) [facility] [id number] 18:43:00 Test Item Value Reference Range Interpretation Comments POC UA Uro (test code = POC UA Uro) 0.2 0.1-1.0 [facility] [id number] 18:43:00 Test Item Value Reference Range Interpretation Comments POC UA Nit (test code Negative *NA*(09/19/20 = POC UA Nit) 1:43 PM) [facility] [id number] 18:43:00 Test Item Value Reference Range Interpretation Comments POC UA LeukEst (test Negative *NA*(09/19/20 code = POC UA LeukEst) 1:43 PM) [facility] [id number] 20:56:00 Test Item Value Reference Range Interpretation Comments POC UA Color (test code = POC UA Light yellow Color) [facility] [id number] 20:56:00 Test Item Value Reference Range Interpretation Comments POC UA Turbidity (test Cloudy *ABN*(06/30/19 code = POC UA Turbidity) 2:56 PM) [facility] [id number] 20:56:00 Test Item Value Reference Range Interpretation Comments POC UA SG (test code = POC UA SG) 1.010 1 [facility] [id number] 20:56:00 Test Item Value Reference Range Interpretation Comments POC UA pH (test code = POC UA pH) 5.5 1 5.0-8.0 [facility] [id number] 20:56:00 Test Item Value Reference Range Interpretation Comments POC UA Prot (test code = POC Negative mg/dL UA Prot) [facility] [id number] 20:56:00 Test Item Value Reference Range Interpretation Comments POC UA Glu (test code = POC UA Negative mg/dL Glu) [facility] [id number] 20:56:00 Test Item Value Reference Range Interpretation Comments POC UA Ket (test code = POC UA Negative mg/dL Ket) [facility] [id number] 20:56:00 Test Item Value Reference Range Interpretation Comments POC UA Bili (test Negative *NA*(06/30/19 code = POC UA Bili) 2:56 PM) [facility] [id number] 20:56:00 Test Item Value Reference Range Interpretation Comments POC UA Bld (test code Trace *ABN*(06/30/19 = POC UA Bld) 2:56 PM) [facility] [id number] 20:56:00 Test Item Value Reference Range Interpretation Comments POC UA Uro (test code = POC UA Uro) 0.2 0.1-1.0 [facility] [id number] 20:56:00 Test Item Value Reference Range Interpretation Comments POC UA Nit (test code Negative *NA*(06/30/19 = POC UA Nit) 2:56 PM) [facility] [id number] 20:56:00 Test Item Value Reference Range Interpretation Comments POC UA LeukEst (test Negative *NA*(06/30/19 code = POC UA LeukEst) 2:56 PM) [facility] [id number] 20:56:00 Test Item Value Reference Range Interpretation Comments POC UA Color (test code = POC UA Light yellow Color) [facility] [id number] 20:56:00 Test Item Value Reference Range Interpretation Comments POC UA Turbidity (test Cloudy *ABN*(06/30/19 code = POC UA Turbidity) 2:56 PM) [facility] [id number] 20:56:00 Test Item Value Reference Range Interpretation Comments POC UA SG (test code = POC UA SG) 1.010 1 [facility] [id number] 20:56:00 Test Item Value Reference Range Interpretation Comments POC UA pH (test code = POC UA pH) 5.5 1 5.0-8.0 [facility] [id number] 20:56:00 Test Item Value Reference Range Interpretation Comments POC UA Prot (test code = POC Negative mg/dL UA Prot) [facility] [id number] 20:56:00 Test Item Value Reference Range Interpretation Comments POC UA Glu (test code = POC UA Negative mg/dL Glu) [facility] [id number] 20:56:00 Test Item Value Reference Range Interpretation Comments POC UA Ket (test code = POC UA Negative mg/dL Ket) [facility] [id number] 20:56:00 Test Item Value Reference Range Interpretation Comments POC UA Bili (test Negative *NA*(06/30/19 code = POC UA Bili) 2:56 PM) [facility] [id number] 20:56:00 Test Item Value Reference Range Interpretation Comments POC UA Bld (test code Trace *ABN*(06/30/19 = POC UA Bld) 2:56 PM) [facility] [id number] 20:56:00 Test Item Value Reference Range Interpretation Comments POC UA Uro (test code = POC UA Uro) 0.2 0.1-1.0 [facility] [id number] 20:56:00 Test Item Value Reference Range Interpretation Comments POC UA Nit (test code Negative *NA*(06/30/19 = POC UA Nit) 2:56 PM) [facility] [id number] 20:56:00 Test Item Value Reference Range Interpretation Comments POC UA LeukEst (test Negative *NA*(06/30/19 code = POC UA LeukEst) 2:56 PM) [facility] [id number] 20:56:00 Test Item Value Reference Range Interpretation Comments POC UA Color (test code = POC UA Light yellow Color) [facility] [id number] 20:56:00 Test Item Value Reference Range Interpretation Comments POC UA Turbidity (test Cloudy *ABN*(06/30/19 code = POC UA Turbidity) 2:56 PM) [facility] [id number] 20:56:00 Test Item Value Reference Range Interpretation Comments POC UA SG (test code = POC UA SG) 1.010 1 [facility] [id number] 20:56:00 Test Item Value Reference Range Interpretation Comments POC UA pH (test code = POC UA pH) 5.5 1 5.0-8.0 [facility] [id number] 20:56:00 Test Item Value Reference Range Interpretation Comments POC UA Prot (test code = POC Negative mg/dL UA Prot) [facility] [id number] 20:56:00 Test Item Value Reference Range Interpretation Comments POC UA Glu (test code = POC UA Negative mg/dL Glu) [facility] [id number] 20:56:00 Test Item Value Reference Range Interpretation Comments POC UA Ket (test code = POC UA Negative mg/dL Ket) [facility] [id number] 20:56:00 Test Item Value Reference Range Interpretation Comments POC UA Bili (test Negative *NA*(06/30/19 code = POC UA Bili) 2:56 PM) [facility] [id number] 20:56:00 Test Item Value Reference Range Interpretation Comments POC UA Bld (test code Trace *ABN*(06/30/19 = POC UA Bld) 2:56 PM) [facility] [id number] 20:56:00 Test Item Value Reference Range Interpretation Comments POC UA Uro (test code = POC UA Uro) 0.2 0.1-1.0 [facility] [id number] 20:56:00 Test Item Value Reference Range Interpretation Comments POC UA Nit (test code Negative *NA*(06/30/19 = POC UA Nit) 2:56 PM) [facility] [id number] 20:56:00 Test Item Value Reference Range Interpretation Comments POC UA LeukEst (test Negative *NA*(06/30/19 code = POC UA LeukEst) 2:56 PM) [facility] [id number] 20:56:00 Test Item Value Reference Range Interpretation Comments POC UA Color (test code = POC UA Light yellow Color) [facility] [id number] 20:56:00 Test Item Value Reference Range Interpretation Comments POC UA Turbidity (test Cloudy *ABN*(06/30/19 code = POC UA Turbidity) 2:56 PM) [facility] [id number] 20:56:00 Test Item Value Reference Range Interpretation Comments POC UA SG (test code = POC UA SG) 1.010 1 [facility] [id number] 20:56:00 Test Item Value Reference Range Interpretation Comments POC UA pH (test code = POC UA pH) 5.5 1 5.0-8.0 [facility] [id number] 20:56:00 Test Item Value Reference Range Interpretation Comments POC UA Prot (test code = POC Negative mg/dL UA Prot) [facility] [id number] 20:56:00 Test Item Value Reference Range Interpretation Comments POC UA Glu (test code = POC UA Negative mg/dL Glu) [facility] [id number] 20:56:00 Test Item Value Reference Range Interpretation Comments POC UA Ket (test code = POC UA Negative mg/dL Ket) [facility] [id number] 20:56:00 Test Item Value Reference Range Interpretation Comments POC UA Bili (test Negative *NA*(06/30/19 code = POC UA Bili) 2:56 PM) [facility] [id number] 20:56:00 Test Item Value Reference Range Interpretation Comments POC UA Bld (test code Trace *ABN*(06/30/19 = POC UA Bld) 2:56 PM) [facility] [id number] 20:56:00 Test Item Value Reference Range Interpretation Comments POC UA Uro (test code = POC UA Uro) 0.2 0.1-1.0 [facility] [id number] 20:56:00 Test Item Value Reference Range Interpretation Comments POC UA Nit (test code Negative *NA*(06/30/19 = POC UA Nit) 2:56 PM) [facility] [id number] 20:56:00 Test Item Value Reference Range Interpretation Comments POC UA LeukEst (test Negative *NA*(06/30/19 code = POC UA LeukEst) 2:56 PM) [facility] [id number] 20:56:00 Test Item Value Reference Range Interpretation Comments POC UA Color (test code = POC UA Light yellow Color) [facility] [id number] 20:56:00 Test Item Value Reference Range Interpretation Comments POC UA Turbidity (test Cloudy *ABN*(06/30/19 code = POC UA Turbidity) 2:56 PM) [facility] [id number] 20:56:00 Test Item Value Reference Range Interpretation Comments POC UA SG (test code = POC UA SG) 1.010 1 [facility] [id number] 20:56:00 Test Item Value Reference Range Interpretation Comments POC UA pH (test code = POC UA pH) 5.5 1 5.0-8.0 [facility] [id number] 20:56:00 Test Item Value Reference Range Interpretation Comments POC UA Prot (test code = POC Negative mg/dL UA Prot) [facility] [id number] 20:56:00 Test Item Value Reference Range Interpretation Comments POC UA Glu (test code = POC UA Negative mg/dL Glu) [facility] [id number] 20:56:00 Test Item Value Reference Range Interpretation Comments POC UA Ket (test code = POC UA Negative mg/dL Ket) [facility] [id number] 20:56:00 Test Item Value Reference Range Interpretation Comments POC UA Bili (test Negative *NA*(06/30/19 code = POC UA Bili) 2:56 PM) [facility] [id number] 20:56:00 Test Item Value Reference Range Interpretation Comments POC UA Bld (test code Trace *ABN*(06/30/19 = POC UA Bld) 2:56 PM) [facility] [id number] 20:56:00 Test Item Value Reference Range Interpretation Comments POC UA Uro (test code = POC UA Uro) 0.2 0.1-1.0 [facility] [id number] 20:56:00 Test Item Value Reference Range Interpretation Comments POC UA Nit (test code Negative *NA*(06/30/19 = POC UA Nit) 2:56 PM) [facility] [id number] 20:56:00 Test Item Value Reference Range Interpretation Comments POC UA LeukEst (test Negative *NA*(06/30/19 code = POC UA LeukEst) 2:56 PM) [facility] [id number] 20:56:00 Test Item Value Reference Range Interpretation Comments POC UA Color (test code = POC UA Light yellow Color) [facility] [id number] 20:56:00 Test Item Value Reference Range Interpretation Comments POC UA Turbidity (test Cloudy *ABN*(06/30/19 code = POC UA Turbidity) 2:56 PM) [facility] [id number] 20:56:00 Test Item Value Reference Range Interpretation Comments POC UA SG (test code = POC UA SG) 1.010 1 [facility] [id number] 20:56:00 Test Item Value Reference Range Interpretation Comments POC UA pH (test code = POC UA pH) 5.5 1 5.0-8.0 [facility] [id number] 20:56:00 Test Item Value Reference Range Interpretation Comments POC UA Prot (test code = POC Negative mg/dL UA Prot) [facility] [id number] 20:56:00 Test Item Value Reference Range Interpretation Comments POC UA Glu (test code = POC UA Negative mg/dL Glu) [facility] [id number] 20:56:00 Test Item Value Reference Range Interpretation Comments POC UA Ket (test code = POC UA Negative mg/dL Ket) [facility] [id number] 20:56:00 Test Item Value Reference Range Interpretation Comments POC UA Bili (test Negative *NA*(06/30/19 code = POC UA Bili) 2:56 PM) [facility] [id number] 20:56:00 Test Item Value Reference Range Interpretation Comments POC UA Bld (test code Trace *ABN*(06/30/19 = POC UA Bld) 2:56 PM) [facility] [id number] 20:56:00 Test Item Value Reference Range Interpretation Comments POC UA Uro (test code = POC UA Uro) 0.2 0.1-1.0 [facility] [id number] 20:56:00 Test Item Value Reference Range Interpretation Comments POC UA Nit (test code Negative *NA*(06/30/19 = POC UA Nit) 2:56 PM) [facility] [id number] 20:56:00 Test Item Value Reference Range Interpretation Comments POC UA LeukEst (test Negative *NA*(06/30/19 code = POC UA LeukEst) 2:56 PM) [facility] [id number] 20:56:00 Test Item Value Reference Range Interpretation Comments POC UA Color (test code = POC UA Light yellow Color) [facility] [id number] 20:56:00 Test Item Value Reference Range Interpretation Comments POC UA Turbidity (test Cloudy *ABN*(06/30/19 code = POC UA Turbidity) 2:56 PM) [facility] [id number] 20:56:00 Test Item Value Reference Range Interpretation Comments POC UA SG (test code = POC UA SG) 1.010 1 [facility] [id number] 20:56:00 Test Item Value Reference Range Interpretation Comments POC UA pH (test code = POC UA pH) 5.5 1 5.0-8.0 [facility] [id number] 20:56:00 Test Item Value Reference Range Interpretation Comments POC UA Prot (test code = POC Negative mg/dL UA Prot) [facility] [id number] 20:56:00 Test Item Value Reference Range Interpretation Comments POC UA Glu (test code = POC UA Negative mg/dL Glu) [facility] [id number] 20:56:00 Test Item Value Reference Range Interpretation Comments POC UA Ket (test code = POC UA Negative mg/dL Ket) [facility] AND [id number] 20:56:00 Test Item Value Reference Range Interpretation Comments POC UA Bili (test Negative *NA*(06/30/19 code = POC UA Bili) 2:56 PM) [facility] AND [id number] 20:56:00 Test Item Value Reference Range Interpretation Comments POC UA Bld (test code Trace *ABN*(06/30/19 = POC UA Bld) 2:56 PM) [facility] AND [id number] 20:56:00 Test Item Value Reference Range Interpretation Comments POC UA Uro (test code = POC UA Uro) 0.2 0.1-1.0 [facility] AND [id number] 20:56:00 Test Item Value Reference Range Interpretation Comments POC UA Nit (test code Negative *NA*(06/30/19 = POC UA Nit) 2:56 PM) [facility] AND [id number] 20:56:00 Test Item Value Reference Range Interpretation Comments POC UA LeukEst (test Negative *NA*(06/30/19 code = POC UA LeukEst) 2:56 PM) [id number] 20:41:00 Test Item Value Reference Range Interpretation Comments POC Creatinine (test code = POC 0.9 0.5-1.4 Creatinine) [facility] [id number] 20:41:00 Test Item Value Reference Range Interpretation Comments eGFR (test code = eGFR) 66 [facility] [id number] 20:41:00 Test Item Value Reference Range Interpretation Comments POC Creatinine (test code = POC 0.9 0.5-1.4 Creatinine) [facility]2020-01-14 20:41:00 Test Item Value Reference Range Interpretation Comments eGFR (test code = eGFR) 66 [facility]2020-01-14 20:41:00 Test Item Value Reference Range Interpretation Comments POC Creatinine (test code = POC 0.9 0.5-1.4 Creatinine) [facility]2020-01-14 20:41:00 Test Item Value Reference Range Interpretation Comments eGFR (test code = eGFR) 66 [facility]2020-01-14 20:41:00 Test Item Value Reference Range Interpretation Comments POC Creatinine (test code = POC 0.9 0.5-1.4 Creatinine) [facility]2020-01-14 20:41:00 Test Item Value Reference Range Interpretation Comments eGFR (test code = eGFR) 66 [facility]2020-01-14 20:41:00 Test Item Value Reference Range Interpretation Comments POC Creatinine (test code = POC 0.9 0.5-1.4 Creatinine) [facility]2020-01-14 20:41:00 Test Item Value Reference Range Interpretation Comments eGFR (test code = eGFR) 66 [facility]2020-01-14 20:41:00 Test Item Value Reference Range Interpretation Comments POC Creatinine (test code = POC 0.9 0.5-1.4 Creatinine) [facility]2020-01-14 20:41:00 Test Item Value Reference Range Interpretation Comments eGFR (test code = eGFR) 66 [facility]2020-01-14 20:41:00 Test Item Value Reference Range Interpretation Comments POC Creatinine (test code = POC 0.9 0.5-1.4 Creatinine) [facility]2020-01-14 20:41:00 Test Item Value Reference Range Interpretation Comments eGFR (test code = eGFR) 66 [facility] Notes Date/Time Note Provider Source 2022-09-04 17:17:00-00:00 [facility] ([facility]) DT Operative Note REPORT#:[id number] REPORT STATUS: Signed DATE:09/04/22 TIME: 1716 PATIENT: VITO COFFMAN STEFANIE UNIT #: [id number] ROOM/BED: : 50 AGE: 72 SEX: F ATTEND: Raghu Kimble MD ADM AUTHOR: Raghu Kimble MD * ALL edits or amendments must be made on the [employer]/computer document * Operative Report Operative Note Note: DATE OF SERVICE: 09/04/22 PREOPERATIVE DIAGNOSIS: right middle trigger fin neil POSTOPERATIVE DIAGNOSIS: right middle trigger fi nger OPERATION PERFORMED: right middle finger A1 pull ey release SURGEON: Raghu Kimble MD [employer] SURGEON: Evaristo Au ANESTHESIA: Local COMPLICATIONS: None. ESTIMATED BLOOD LOSS: Minimal TOURNIQUET TIME: 10 minutes at 250 mmHg SPECIMENS: None FINDINGS: Complete release of the A1 jeremy. INDICATIONS: This is a 72 year old female with r ight middle finger trigger finger. Patient wishes to proceed with surgical release. Risks, benefits, and alternatives to the procedure were discussed wit h the patient in detail preoperatively. Risks include, but not limited t o, infection, damage to blood vessels or nerves, stiffness of fingers, and need for further surgery. Patient verbalized understanding of these risk and conse nted to proceed. OPERATIVE NOTE: Patient was identified in the preoperative holding area and the correct surgical site was ma rked. Patient was then brought to the Operating Room where a formal time-out was performed to confirm the correct patient, site, and planned operation. Local anesthetic was given in the level of the A1 jeremy. A well padded tourniquet was placed on the forearm. Patient was then prepped and draped in the usual sterile fashion. The hand wa s then exsanguinated and tourniquet inflated to 225mg Hg. An approximately 2 cm longit udinal incision was made over the A1 jeremy. Careful dissection down to the jeremy was made and incis ed using a knife. Complete resection was ensured using tenotomy sci ssors. At this time, the patient could make a full fist and had ful l passive extension. There was good excursion of the tendon. At this time, the skin was c losed using 4.0 nylon. Sterile dressing 4 x 4 gauze, gauze dressing and ELIZABETH wrap were then applied. The tourniquet was then deflated. All sponge, needle and instrument counts were co rrect at the end of the procedure. The hand had exce llent perfusion at the end of the procedure. Patient was then transferred to the recovery room in [facility] ble condition. Electronically Signed by Raghu Kimble MD on 09/04 at 1718 RPT #:[id number] END OF REPORT 2019-05-23 14:30:00-00:00 Radiation Dose CTDIVOL = 0 (mGy): DLP = 2889 (mGy-cm) [facility] PROCEDURE INFORMATION: Exam: CT Abdomen And Pelvis Without And With Con trast Exam date and time: 05/23/2019 2:55 PM Age: 68 years old Clinical indication: /10-minute delays, urogram. Stress incontinence () TECHNIQUE: Imaging protocol: Computed tomography of the abd omen and pelvis without and with intravenous contrast. Total DLP: 2889 mGy-cm Radiation optimization: All CT scans at this facility use at least one of these dose optimization techniques: automated exposure control; mA and/or kV adjustment per patient size (includes targeted e xams where dose is matched to clinical indication); or iterative reconstructio n. Contrast material: OMNI; Contrast volume: 100 ml ; Contrast route: IV; COMPARISON: No relevant prior available for comparison. FINDINGS: Liver: Enhances normally without appreciable mas s. Gallbladder and bile ducts: Gallbladder is surgi francisoc j absent. Pancreas: Normal CT appearance. No ductal dilati on. Spleen: No splenomegaly. Adrenals: No mass. Kidneys and ureters: There a re punctate 2 mm nonobstructing calyceal calculi at the lower pole of the right kidney. The kidneys enhance symmetrically and excrete contrast promptly. The collecting system s opacify normally with excreted contrast without suspicious filling def ect. Subcentimeter cortical hypodensity at the upper pole of the left kidney is too small to accurately characterize but statistically represents a cyst . Stomach and bowel: Colonic diverticulosis withou t acute inflammation. Appendix: No evidence of appendicitis. Intraperitoneal space: No free air. No free flui d. Vasculature: Atheromatous changes are pr esent in the aorta. There are coronary artery calcifications. Lymph nodes: No enlarged lymph nodes. Bladder: Unremarkable as visualized. Reproductive: The uterus is surgically absent. 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 There is trace retrolisthesis of L5 on S1. There is moderate disc space narrowing at L5-S1. There is neural foraminal stenosis at L4-L5 bilaterally. Soft tissues: Unremarkable. IMPRESSION: 1. Nonobstructing right nephrolithiasis 2. Lumbar spondylolysis with spondylolis thesis, degenerative change and neural foraminal stenosis 3. Diverticulosis Angelina Wade MD On 05/24/2019 14:22:33; VR-N [id number]
[2022-11-06] MEDS ORDERED: NA CHLORIDE 0.9% 1,000 ML ONE (13:26)
[2022-11-06] MEDS ORDERED: ONDANSETRON 4 MG/2 ML VIAL ONE (13:26)
[2022-11-06] MEDS ORDERED: MAGNES/ALUMIN/SIMET 30ML UCUP ONE (13:26)
[2022-11-06] MEDS ORDERED: FENTANYL CITR 100 MCG/2 ML ONE (13:32)
[2022-11-06] MEDS ORDERED: PANTOPRAZOLE 40 MG INJ ONE (13:33)
[2022-11-06 13:48] LABS: Absolute Lymphocytes (CBC) 1.6 K/uL (0.7-4.9); Hematocrit 40.8 % (36.0-45.0); Lymphocytes % 20.4 % (15.3-44.8); MCV 93.1 fL (80-100); MPV 9.4 fL (7.6-11.3); RBC Red Blood Cell Count 4.38 M/uL (3.86-4.86)
[2022-11-06 14:05] LABS: Specific Gravity 1.009 (1.005-1.030); Urine Bacteria <20 /HPF (<20); Urine Bilirubin NEGATIVE (Negative); Urine Blood Negative (Negative); Urine Clarity Extremely Turbid (Clear); Urine Color Light-Yellow (Yellow); Urine Glucose NEGATIVE (Negative); Urine Mucus Slight /HPF (None Seen); Urine Protein NEGATIVE (Negative); Urine RBC <5 /HPF (None Seen); Urine Urobilinogen Normal (Normal)
[2022-11-06 14:09] LABS: Albumin 3.7 g/dL (3.4-5.0); Bilirubin Total 0.6 mg/dL (0.2-1.0); Potassium 4.2 mEq/L (3.5-5.1); Protein, Total 7.6 g/dL (6.4-8.2)
--- NOTE | 2022-11-06 15:55 | RAD REPORT ---
EXAM DESCRIPTION: CT - Abdomen Pelvis W Contrast - 11/06/2022 3:27 pm CLINICAL HISTORY: Abdominal pain COMPARISON: none. TECHNIQUE: Computed axial tomography of the abdomen pelvis was obtained. 100 cc Isovue-300 was admin istered intravenously. Oral contrast was not requested which limits evaluation of bowel and appendix All CT scans are performed using dose optimization technique as appropriate and may include automated exposure control or mA/KV adjustment according to patient size. FINDINGS: Several small right renal calculi. Extrarenal pelvis. No hydronephrosis. Left kidney are unremarkable Cholecystectomy. Liver, spleen, pancreas and adrenals unremarkable Diverticula stem from the colon without evidence diverticulitis. Hysterectomy. No adnexal mass Mild anterior subluxation L4 on L5. Spondylolysis L4. Marked disc space narrowing and subchondral scl erosis L4 and L5. Mild to moderate posterior subluxation of L5 on S1 with disc space narrowing. Appendix is not seen. No stranding adjacent to cecum. No free fluid IMPRESSION: No acute abnormality is displayed.
--- NOTE | 2022-11-06 16:08 | ER ---
Nurse's Notes [facility] Name: Jacy Plummer Age: 72 yrs Sex: Female : 1950 Arrival Date: 11/06/2022 Time: 13:01 Bed 19 Private MD: Jacinto Cummings Diagnosis: Epigastric abdominal tenderness;Gastro-esophageal reflux disease with esophagitis Presentation: 11/06 13:06 Chief complaint: Patient states: 10 DAYS EPIGASTRIC PAIN WITH NAUSEA. Coronavirus bp screen: At this time, the client does not indicate any symptoms associated with coronavirus-19. Ebola Screen: No symptoms or risks identified at this time. Initial Sepsis Screen: Does the patient meet any 2 criteria? No. Patient's initial sepsis screen is negative. Does the patient have a suspected source of infection? No. Patient's initial sepsis screen is negative. Risk Assessment: Do you want to hurt yourself or someone else? Patient reports no desire to harm self or others. Onset of symptoms is unknown. 13:06 Method Of Arrival: Ambulatory bp 13:06 Acuity: VIJAY 3 bp Historical: - Allergies: 13:07 Phenergan; bp 13:07 Ibuprofen; bp - Home Meds: 13:07 Omeprazole Oral [Active]; Crestor oral [Active]; Claritin Oral [Active]; bp - Immunization history:: Adult Immunizations up to date. - Social history:: Smoking status: Patient denies any tobacco usage or history of. - Family history:: not pertinent. Screenin:15 [facility] ED Fall Risk Assessment (Adult) Score/Fall Risk Level 0 - 2 = Low Risk. Abuse eh3 screen: Denies threats or abuse. Denies injuries from another. Nutritional screening: No deficits noted. Tuberculosis screening: No symptoms or risk factors identified. Assessment: 13:15 General: Appears in no apparent distress. uncomfortable, Behavior is calm, cooperative, eh3 appropriate for age. Pain: Complains of pain in epigastric area. Neuro: Level of Consciousness is awake, alert, obeys commands, Oriented to person, place, time, situation. Cardiovascular: Capillary refill < 3 seconds Patient's skin is warm and dry. Respiratory: Airway is patent Respiratory effort is even, unlabored, Respiratory pattern is regular, symmetrical. GI: Bowel sounds present X 4 quads. Abd is soft and non tender X 4 quads. EENT: Derm: Skin is pink, warm \T\ dry. Musculoskeletal: Circulation, motion, and sensation intact. Range of motion: intact in all extremities. 14:00 Reassessment: Patient appears in no apparent distress at this time. Patient and/or eh3 family updated on plan of care and expected duration. Pain level reassessed. Patient is alert, oriented x 3, equal unlabored respirations, skin warm/dry/pink. 15:00 Reassessment: Patient appears in no apparent distress at this time. Patient and/or eh3 family updated on plan of care and expected duration. Pain level reassessed. Patient is alert, oriented x 3, equal unlabored respirations, skin warm/dry/pink. 16:00 Reassessment: Patient appears in no apparent distress at this time. Patient and/or eh3 family updated on plan of care and expected duration. Pain level reassessed. Patient is alert, oriented x 3, equal unlabored respirations, skin warm/dry/pink. Vital Signs: 13:06 Pulse 93; Resp 18; Temp 98.1; Pulse Ox 98% ; bp 14:00 BP 156 / 72; Pulse 65; Resp 18; Pulse Ox 99% on R/A; eh3 15:00 BP 145 / 72; Pulse 66; Resp 18; Pulse Ox 97% on R/A; eh3 16:00 BP 165 / 60; Pulse 65; Resp 18; Pulse Ox 100% on R/A; eh3 ED Course: 13:04 Patient arrived in ED. mr 13:04 Jacinto Cummings MD is Private Physician. mr 13:05 Oscar Reyes MD is Attending Physician. ll1 13:07 Triage completed. bp 13:07 Arm band placed on. bp 13:14 Nza Stockton, DANY is Primary Nurse. eh3 13:15 Patient has correct armband on for positive identification. Placed in gown. Bed in low eh3 position. Call light in reach. Side rails up X2. Adult w/ patient. Client placed on continuous cardiac and pulse oximetry monitoring. NIBP monitoring applied. Door closed. Noise minimized. Warm blanket given. 13:30 CMP Sent. tt4 13:30 CBC with Diff Sent. tt4 13:30 Lipase Sent. tt4 13:30 Inserted saline lock: 22 gauge in left antecubital area, using aseptic technique. tt4 13:49 Urinalysis w/ reflexes Sent. aw1 15:29 CT Abd/Pelvis - PO and IV Contrast In Process Unspecified. EDMS 16:08 Jacinto Cummings MD is Referral Physician[facility] 16:21 No provider procedures requiring assistance completed. IV discontinued, intact, eh3 bleeding controlled, No redness/swelling at site. Pressure dressing applied. Administered Medications: 13:25 Drug: GI Cocktail without - (Maalox PO Suspension 30 ml, Lidocaine Mucous eh3 Membrane Liquid 2 % 15 ml) Route: PO; 14:30 Follow up: Response: No adverse reaction eh3 13:50 Not Given (Patient Refused): fentaNYL (PF) IVP 25 mcg IVP once eh3 13:50 Not Given (Patient Refused): fentaNYL (PF) IVP 25 mcg IVP once eh3 13:51 Drug: NS 0.9% IV 1000 ml Route: IV; Rate: 1 bolus; Site: left antecubital; eh3 15:00 Follow up: IV Status: Completed infusion; IV Intake: 1000ml eh3 13:51 Drug: Ondansetron IVP 4 mg Route: IVP; Site: left antecubital; eh3 15:00 Follow up: Response: No adverse reaction eh3 13:51 Drug: Pantoprazole IVP 40 mg Route: IVP; Site: left antecubital; eh3 15:00 Follow up: Response: No adverse reaction eh3 Medication: 16:21 VIS not applicable for this client. eh3 Intake: 15:00 IV: 1000ml; Total: 1000ml. eh3 Outcome: 16:08 [facility]22 Discharged to home ambulatory, with significant other. eh3 16:22 Condition: stable 16:22 Discharge instructions given to patient, Instructed on discharge instructions, follow up and referral plans. medication usage, Demonstrated understanding of instructions, follow-up care, medications, Prescriptions given X 4. 16:28 Patient left the ED. eh3 Signatures: Dispatcher [employer] EDMS Oscar Reyes MD MD cha Rivera, Leigh mr MendezChance, RN RN bp Johnathon Oliveros RN RN 1 Naz Stockton RN RN eh3 Raysa Streeter aw1 Janet Pichardo tt4
--- NOTE | 2022-11-06 16:09 | EDPHYS ---
Physician Documentation [facility] Name: Jacy Plummer Age: 72 yrs Sex: Female : 1950 Arrival Date: 11/06/2022 Time: 13:01 Bed 19 Private MD: Jacinto Cummings ED Physician Oscar Reyes HPI: 11/06 15:27 This 72 yrs old Female presents to ER via Ambulatory with complaints of renata Abdominal Pain. 15:27 The patient presents with abdominal pain in the epigastric area, in the upper abdomen. renata Onset: The symptoms/episode began/occurred 1 month(s) ago. The symptoms do not radiate. Associated signs and symptoms: none. The symptoms are described as constant, crampy. Modifying factors: The symptoms are alleviated by nothing, the symptoms are aggravated by nothing. pressure. Severity of pain: At its worst the pain was moderate in the emergency department the pain is unchanged. The patient has experienced similar episodes in the past, chronically. Historical: - Allergies: 13:07 Phenergan; bp 13:07 Ibuprofen; bp - Home Meds: 13:07 Omeprazole Oral [Active]; Crestor oral [Active]; Claritin Oral [Active]; bp - Immunization history:: Adult Immunizations up to date. - Social history:: Smoking status: Patient denies any tobacco usage or history of. - Family history:: not pertinent. ROS: 15:27 Constitutional: Negative for fever, chills, and weight loss, Eyes: Negative for injury, renata pain, redness, and discharge, ENT: Negative for injury, pain, and discharge, Neck: Negative for injury, pain, and swelling, Cardiovascular: Negative for chest pain, palpitations, and edema, Respiratory: Negative for shortness of breath, cough, wheezing, and pleuritic chest pain, Back: Negative for injury and pain, : Negative for injury, bleeding, discharge, and swelling, MS/Extremity: Negative for injury and deformity, Skin: Negative for injury, rash, and discoloration, Neuro: Negative for headache, weakness, numbness, tingling, and seizure, Psych: Negative for depression, anxiety, suicide ideation, homicidal ideation, and hallucinations, Allergy/Immunology: Negative for hives, rash, and allergies, Endocrine: Negative for neck swelling, polydipsia, polyuria, polyphagia, and marked weight changes, Hematologic/Lymphatic: Negative for swollen nodes, abnormal bleeding, and unusual bruising. 15:27 Abdomen/GI: Positive for abdominal pain, of the epigastric area, right upper quadrant and left upper quadrant. Exam: 15:27 Constitutional: This is a well developed, well nourished patient who is awake, alert, renata and in no acute distress. Head/Face: Normocephalic, atraumatic. Eyes: Pupils equal round and reactive to light, extra-ocular motions intact. Lids and lashes normal. Conjunctiva and sclera are non-icteric and not injected. Cornea within normal limits. Periorbital areas with no swelling, redness, or edema. ENT: Nares patent. No nasal discharge, no septal abnormalities noted. Tympanic membranes are normal and external auditory canals are clear. Oropharynx with no redness, swelling, or masses, exudates, or evidence of obstruction, uvula midline. Mucous membranes moist. Neck: Trachea midline, no thyromegaly or masses palpated, and no cervical lymphadenopathy. Supple, full range of motion without nuchal rigidity, or vertebral point tenderness. No Meningismus. Chest/axilla: Normal chest wall appearance and motion. Nontender with no deformity. No lesions are appreciated. Cardiovascular: Regular rate and rhythm with a normal S1 and S2. No gallops, murmurs, or rubs. Normal PMI, no JVD. No pulse deficits. Respiratory: Lungs have equal breath sounds bilaterally, clear to auscultation and percussion. No rales, rhonchi or wheezes noted. No increased work of breathing, no retractions or nasal flaring. Back: No spinal tenderness. No costovertebral tenderness. Full range of motion. Female : Normal external genitalia. Skin: Warm, dry with normal turgor. Normal color with no rashes, no lesions, and no evidence of cellulitis. MS/ Extremity: Pulses equal, no cyanosis. Neurovascular intact. Full, normal range of motion. Neuro: Awake and alert, GCS 15, oriented to person, place, time, and situation. Cranial nerves II-XII grossly intact. Motor strength 5/5 in all extremities. Sensory grossly intact. Cerebellar exam normal. Normal gait. Psych: Awake, alert, with orientation to person, place and time. Behavior, mood, and affect are within normal limits. 15:27 ECG was reviewed by the Attending Physician. 15:27 Abdomen/GI: Inspection: abdomen appears normal, Bowel sounds: normal, Palpation: mild abdominal tenderness, moderate abdominal tenderness, in the epigastric area, Liver: no appreciated palpable abnormalities, Hernia: not appreciated. Vital Signs: 13:06 Pulse 93; Resp 18; Temp 98.1; Pulse Ox 98% ; bp 14:00 BP 156 / 72; Pulse 65; Resp 18; Pulse Ox 99% on R/A; eh3 15:00 BP 145 / 72; Pulse 66; Resp 18; Pulse Ox 97% on R/A; eh3 16:00 BP 165 / 60; Pulse 65; Resp 18; Pulse Ox 100% on R/A; eh3 MDM: 13:05 Patient medically screened. [facility] 15:38 Differential diagnosis: gastritis, gastroesophageal reflux disease, non-specific abd renata pain, pancreatitis, Peptic Ulcer Disease, Perf. Duodenal Ulcer, Perf. Gastric Ulcer. Data reviewed: vital signs, nurses notes, lab test result(s), EKG, radiologic studies, CT scan, plain films. Consideration of Admission/Observation Escalation of care including admission/observation considered. I considered the following discharge prescriptions or medication management in the emergency department Medications were administered in the Emergency Department. See MAR. Test considered but Not performed: Ultrasound no abd usg. Historians other than the Patient: Spouse/Significant Other: . Care significantly affected by the following chronic conditions: Hypertension, Obesity. Counseling: I had a detailed discussion with the patient and/or guardian regarding: the historical points, exam findings, and any diagnostic results supporting the discharge/admit diagnosis, lab results, radiology results, the need for outpatient follow up, for definitive care, a family practitioner, a environmental studies faculty member. 11/06 13:06 Order name: CBC with Diff; Complete Time: 15:44 [facility] 11/06 13:06 Order name: CMP; Complete Time: 15:44 renata 11/06 13:06 Order name: Lipase; Complete Time: 15:44 renata 11/06 13:06 Order name: Urinalysis w/ reflexes; Complete Time: 15:44 renata 11/06 13:28 Order name: Troponin High Sensitivity; Complete Time: 15:44 [facility] 11/06 13:06 Order name: CT Abd/Pelvis - PO and IV Contrast [facility] 06/30 13:28 Order name: EKG; Complete Time: 13:29 [facility] 11/06 13:06 Order name: IV Saline Lock; Complete Time: 13:30 [facility] 11/06 13:06 Order name: Labs collected and sent; Complete Time: : [facility] 11/06 13:28 Order name: EKG - Nurse/Tech; Complete Time: 13:35 [facility] EC:27 Rate is 89 beats/min. Rhythm is regular. QRS Kiana is Normal. ND interval is normal. QRS renata interval is normal. QT interval is normal. No Q waves. T waves are Normal. No ST changes noted. Clinical impression: NSR w/ Non-specific ST/T Changes and No evidence of ischemia. Interpreted by me. Reviewed by me. Administered Medications: 13:25 Drug: GI Cocktail without - (Maalox PO Suspension 30 ml, Lidocaine Mucous eh3 Membrane Liquid 2 % 15 ml) Route: PO; 14:30 Follow up: Response: No adverse reaction eh3 13:50 Not Given (Patient Refused): fentaNYL (PF) IVP 25 mcg IVP once eh3 13:50 Not Given (Patient Refused): fentaNYL (PF) IVP 25 mcg IVP once eh3 13:51 Drug: NS 0.9% IV 1000 ml Route: IV; Rate: 1 bolus; Site: left antecubital; eh3 15:00 Follow up: IV Status: Completed infusion; IV Intake: 1000ml eh3 13:51 Drug: Ondansetron IVP 4 mg Route: IVP; Site: left antecubital; eh3 15:00 Follow up: Response: No adverse reaction eh3 13:51 Drug: Pantoprazole IVP 40 mg Route: IVP; Site: left antecubital; eh3 15:00 Follow up: Response: No adverse reaction eh3 Disposition Summary: 11/06/22 16:08 Discharge Ordered Location: Home renata Problem: new renata Symptoms: have improved renata Condition: Stable renata Diagnosis - Epigastric abdominal tenderness renata - Gastro-esophageal reflux disease with esophagitis renata Followup: renata - With: - When: 2 - 3 days - Reason: Recheck today's complaints, Continuance of care, Re-evaluation by your physician Discharge Instructions: - Discharge Summary Sheet renata - Abdominal Pain, Adult renata - Esophagitis renata - Gastroesophageal Reflux Disease, Adult renata - Indigestion renata - Gastroesophageal Reflux Disease, Adult, [id number] [facility] Forms: - Medication Reconciliation Form [facility] - Thank You Letter renata - Antibiotic Education [facility] - Prescription Opioid Use [facility] - [email or web address] [facility] Prescriptions: - Dexilant 60 mg Oral capsule,delayed release,biphasic - take 1 capsule by ORAL route every 12 hours; 40 capsule; Refills: 0, Product [facility] Selection Permitted - acetaminophen-codeine 300-30 mg Oral tablet - take 2 tablet by ORAL route every 6 hours; 20 tablet; Refills: 0, Product [facility] Selection Permitted - Zofran 4 mg Oral Tablet - take 1 tablet by ORAL route 3 times per day As needed; 26 tablet; Refills: 0, [facility] Product Selection Permitted - dicyclomine 20 mg Oral Tablet - take 1 tablet by ORAL route 4 times per day; 28 tablet; Refills: 0, Product [facility] Selection Permitted Signatures: Dispatcher [employer] Oscar Buchanan MD MD cha Peltier, Brian RN RN bp Naz Stockton RN RN eh3
[2022-11-06 16:53] VITALS: TEMP 98.1
[2022-11-06 16:59] VITALS: BP 165/60; O2SAT 100
--- NOTE | 2022-11-09 19:34 | EKG ---
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
== END 2022-11-06 16:28 | disposition home or self-care (01) ==
LOC: ER 13:01
DX: K21.00 Gastro-esophageal reflux disease with esophagitis, without bleeding (principal); Z88.6 Allergy status to analgesic agent; Z88.8 Allergy status to other drugs, medicaments and biological substances
CPT/HCPCS: 96361; 93005; 85025; 81001; 36415; 84484; 83690; 80053; 74177; 96375; 96374; 99284; Q9967; C9113; J3010; J2405; J7030